=== PATIENT | female | born 1990 | race Caucasian/White ===

== ENCOUNTER 2017-12-12 12:52 | Emergency (ER) | payer BC, OTHER ==
[~2017-12-12] VITALS: Ht 167.6 cm; Wt 83.9 kg
--- OUTSIDE RECORDS SUMMARY | 2017-12-12 12:57 | XMS REPORT ---
Author Author LOUIE JOHNSON Organization [facility] Address [address] [place] [address] Care Team Providers Care Fishing Manager Name Role Phone LOUIE JOHNSON Unavailable PROBLEMS Type Condition ICD9-CM Code NNM84-SY Code Onset Dates Condition Status SNOMED Code Problem Cervical high risk human papillomavirus (HPV) DNA test positive R87.810 Active [id number] ALLERGIES No Information ENCOUNTERS Encounter Location Date Diagnosis [facility] [id number] [place] [address] Nov, Encounter for Depo-Provera contraception Z30.42 [facility] [id number] [place] [address]48 [address][phone] August, Encounter for Depo-Provera contraception Z30.42 [facility] [id number] [place] [address] 63358- 3062 Jun, Cervical high risk human papillomavirus (HPV) DNA test positive R87.810 [facility] [id number] [place] [address] 09854- 7530 Jun, [facility] [id number] [place] [address] 30305- 3703 May, Encounter for Depo-Provera contraception Z30.42 ; Well woman exam Z01.419 and Encounter for surveillance of injectable contraceptive Z30.42 [facility] [id number] [place] [address] [phone]- [phone] May, [facility] [id number] [place] [address]3457 -1848 Feb, Encounter for Depo-Provera contraception Z30.42 [facility] [address], [place] [address] Nov, Encounter for Depo-Provera contraception Z30.42 [facility] [address], [place] [address] August, Abnormal thyroid function test R94.6 [facility] [address] [place] [address] 58785- 7208 August, Abnormal thyroid function test R94.6 ; Anterior chest wall pain R07.89 and General medical exam Z00.00 [facility] [id number] [place] [address]3700- 5726 August, Encounter for Depo-Provera contraception Z30.42 [facility] [id number] [place] [address] 79160- 9528 Jun, [facility] [id number] [place] [address] 06396- 6444 Jun, Cervical high risk human papillomavirus (HPV) DNA test positive R87.810 and Atypical squamous cells of undetermined significance on cytologic smear of cervix (ASC-US) R87.610 [facility] [id number] [place] [address] 56786- 9315 07 May, 2016 Routine gynecological examination Z01.419 and Encounter for Depo-Provera contraception Z30.42 [facility] [address], [place] [address] Jul, [facility] [id number] [place] [address] 98355- 6212 Jul, [facility] [id number] [place] [address] 18253- 8156 Oct, [facility] [id number] [place] [address] [phone]- [phone] Jun, [facility] [address] [address] Jun, [facility] [id number] [place] [address] Jun, [facility] [address] [facility] [id number] [place] [address] Jan, [facility] [address] [facility] [id number] [place] [address] Jan, IMMUNIZATIONS Vaccine Route Administration Date Status DEPO PROVERA (150 MG/ML) IM Intramuscular August 26, 2017 Administered SOCIAL HISTORY Never Assessed REASON FOR VISIT Depo Provera injection PLAN OF CARE VITAL SIGNS Height 65 in 2017-08-26 Weight 189.6 lbs 2017-08-26 BMI 31.55 kg/m2 2017-08-26 MEDICATIONS Unknown Medications RESULTS Name Result Date Reference Range TEST, URINE (IN HOUSE) 2017-08-26 RESULTS negative Lot # [id number] Control + Exp date 01/03/2019 PROCEDURES Procedure Date Ordered Result Body Site URINE TEST August 26, 2017 DEPO PROVERA (150 MG/ML) August 26, 2017 THER/PROPH/DIAG INJ, SC/IM August 26, 2017 INSTRUCTIONS MEDICATIONS ADMINISTERED No Known Medications MEDICAL (GENERAL) HISTORY Type Description Date Medical History gestational diabetes
--- OUTSIDE RECORDS SUMMARY | 2017-12-12 12:57 | XMS REPORT ---
Author Author XIOMARA KATE Organization [facility] Address [address] [place] [address] Care Team Providers Care Resist Coater Developer Name Role Phone LADD XIOMARA ROBERTS Unavailable PROBLEMS Type Condition ICD9-CM Code UWE84-FZ Code Onset Dates Condition Status SNOMED Code Problem Cervical high risk human papillomavirus (HPV) DNA test positive R87.810 Active [id number] ALLERGIES No Known Allergies ENCOUNTERS Encounter Location Date Diagnosis [facility] [id number] [place] [address] 14582 [address] August, Encounter for Depo-Provera contraception Z30.42 [facility] [id number] [place] [address] 48736- 2935 Jun, Cervical high risk human papillomavirus (HPV) DNA test positive R87.810 [facility] [id number] [place] [address] 67508- 9313 Jun, [facility] [address] [place] [address] 89854- 0607 May, Well woman exam Z01.419 ; Encounter for Depo-Provera contraception Z30.42 and Encounter for surveillance of injectable contraceptive Z30.42 [facility] [address] [place] [address] 60869- 2759 May, [facility] [id number] [place] [address] 98059 -2324 Feb, Encounter for Depo-Provera contraception Z30.42 [facility] [id number] [place] [address] 66204 -3112 Nov, Encounter for Depo-Provera contraception Z30.42 [facility] [id number] [place] [address] 57368- 4981 August, Abnormal thyroid function test R94.6 [facility] [id number] [place] [address] 34441- 5372 August, Abnormal thyroid function test R94.6 ; Anterior chest wall pain R07.89 and General medical exam Z00.00 [facility] [id number] [place] [address] 62894- 0467 August, Encounter for Depo-Provera contraception Z30.42 [facility] [facility] [id number] [place] [address] 74745- 0258 Jun, [facility] [id number] [place] [address] 82527- 3357 Jun, Cervical high risk human papillomavirus (HPV) DNA test positive R87.810 and Atypical squamous cells of undetermined significance on cytologic smear of cervix (ASC-US) R87.610 [facility] [id number] [place] [address] 61044- 5359 May, Routine gynecological examination Z01.419 and Encounter for Depo-Provera contraception Z30.42 [facility] [id number] [place] [address] 50677- 1047 Jul, [facility] [id number] [place] [address] 33818- [phone] Jul, [facility] [id number] [place] [address] 86319- 6447 Oct, [facility] [id number] [place] [address] 37464- 1718 Jun, [facility] [id number] [place] [address] 80214- 0648 Jun, [facility] [id number] [place] [address] 58597- 2603 Jun, [place] [facility] [id number] [place] [address] 46328- 9606 Jan, [facility] [address] [facility] [id number] [place] [address] Jan, IMMUNIZATIONS Vaccine Route Administration Date Status DEPO PROVERA (150 MG/ML) IM Intramuscular May 22, 2017 Administered SOCIAL HISTORY Never Assessed REASON FOR VISIT control/yearly annual exam, Needing repeat pap. Needing depo shot renewed. -MIKE Chaves PLAN OF CARE Activity Details Follow Up 1 Year Reason: VITAL SIGNS Height 65 in 2017-05-22 Weight 187 lbs 2017-05-22 Heart Rate 80 bpm 2017-05-22 Respiratory Rate 18 2017-05-22 BMI 31.12 kg/m2 2017-05-22 Blood pressure systolic 100 mmHg 2017-05-22 Blood pressure diastolic 70 mmHg 2017-05-22 MEDICATIONS Medication Instructions Dosage Frequency Start Date End Date Duration Status Ranitidine HCl 150 mg 1 tablet by Oral route 2 times per day Jun, Not-Taking Depo-Provera 150 MG/ML as directed May, Active RESULTS No Results PROCEDURES Procedure Date Ordered Result Body Site TRICHOMONAS ASSAY W/OPTIC May 22, 2017 Bacterial Vaginosis In House May 22, 2017 DEPO PROVERA (150 MG/ML) May 22, 2017 THER/PROPH/DIAG INJ, SC/IM May 22, 2017 SPECIMEN HANDLING May 22, 2017 URINE TEST May 22, 2017 No Charge May 22, 2017 CULTURE, BACTERIA, OTHER May 22, 2017 INSTRUCTIONS MEDICATIONS ADMINISTERED No Known Medications MEDICAL (GENERAL) HISTORY Type Description Date Medical History gestational diabetes
--- OUTSIDE RECORDS SUMMARY | 2017-12-12 12:58 | XMS REPORT ---
Author Author FRANCO BEASLEY Organization [facility] Address [address] [place] [address] Care Team Providers Care Dispatch Supervisor Name Role Phone DELMY BEASLEYHANY Unavailable PROBLEMS Type Condition ICD9-CM Code RYP66-VX Code Onset Dates Condition Status SNOMED Code Problem Cervical high risk human papillomavirus (HPV) DNA test positive R87.810 Active [id number] ALLERGIES No Known Allergies SOCIAL HISTORY Never Assessed PLAN OF CARE Activity Details Follow Up prn Reason: VITAL SIGNS Height 65 in 2016-06-06 Weight 187.8 lbs 2016-06-06 Temperature 98.4 degrees Fahrenheit 2016-06-06 Heart Rate 76 bpm 2016-06-06 Respiratory Rate 20 2016-06-06 BMI 31.25 kg/m2 2016-06-06 Blood pressure systolic 110 mmHg 2016-06-06 Blood pressure diastolic 78 mmHg 2016-06-06 MEDICATIONS Medication Instructions Dosage Frequency Start Date End Date Duration Status Depo-Provera 150 MG/ML as directed May, Active RESULTS Name Result Date Reference Range PATHOLOGY REPORT 2016-06-06 . . . . . . . TEST, URINE (IN HOUSE) 2016-06-06 RESULTS Negative Lot # [id number] Control + Exp date 07/2017 PDF Report 2016-06-06 PDF Report1 LC PROCEDURES Procedure Date Ordered Result Body Site COLP W/ BX & ECC 2016-06-06 N/A URINE TEST June 06, 2016 BX/CURETT OF CERVIX W/SCOPE June 06, 2016 IMMUNIZATIONS No Known Immunizations MEDICAL (GENERAL) HISTORY Type Description Date Medical History gestational diabetes
--- OUTSIDE RECORDS SUMMARY | 2017-12-12 12:58 | XMS REPORT ---
Author Author DEANGELO HUDSON Organization [facility] Address [address] [place] [address] Care Team Providers Care Risk Manager Name Role Phone DEANGELO HUDSON Unavailable PROBLEMS Type Condition ICD9-CM Code WYL65-PG Code Onset Dates Condition Status SNOMED Code Problem Cervical high risk human papillomavirus (HPV) DNA test positive R87.810 Active [id number] ALLERGIES No Known Allergies SOCIAL HISTORY Never Assessed PLAN OF CARE Activity Details Follow Up 1 Year, sooner prn Reason: VITAL SIGNS Height 65 in 2016-05-13 Weight 184 lbs 2016-05-13 Temperature 98.1 degrees Fahrenheit 2016-05-13 Heart Rate 90 bpm 2016-05-13 Respiratory Rate 20 2016-05-13 BMI 30.62 kg/m2 2016-05-13 Blood pressure systolic 102 mmHg 2016-05-13 Blood pressure diastolic 74 mmHg 2016-05-13 MEDICATIONS Medication Instructions Dosage Frequency Start Date End Date Duration Status Depo-Provera 150 MG/ML as directed May, Active RESULTS Name Result Date Reference Range TEST, URINE (IN HOUSE) 2016-05-13 RESULTS negative Lot # [id number] Control + Exp date 07/22 TRICHOMONAS (IN HOUSE) 2016-05-13 TRICHOMONAS negative Control + Lot # [id number] Exp date 02/20 BACTERIAL VAGINOSIS (IN HOUSE) 2016-05-13 RESULTS negative Control + Lot # [id number] Exp date 11/20 CULTURE, GENITAL 2016-05-13 Genital Culture, Routine Final report Result 1 PDF Report 2016-05-13 PDF Report1 LCLS PAP TEST, HPV IF ASCUS 2016-05-13 DIAGNOSIS: Recommendation: Specimen adequacy: Clinician provided ICD10: Performed by: Electronically signed by: . . Pathologist provided ICD10: Note: . HPV, high-risk Positive Negative PAP TEST, HPV IF ASCUS 2016-05-13 DIAGNOSIS: Recommendation: Specimen adequacy: Clinician provided ICD10: Performed by: Electronically signed by: . . Pathologist provided ICD10: Note: . HPV, high-risk Positive Negative GC/CHLAM PROBE (STATE) 2016-05-13 CHLAMYDIA GC PROCEDURES Procedure Date Ordered Result Body Site SPECIMEN HANDLING May 13, 2016 LIMA VAG, DNA, DIR PROBE May 13, 2016 THER/PROPH/DIAG INJ, SC/IM May 13, 2016 DEPO PROVERA (150 MG/ML) May 13, 2016 No Charge May 13, 2016 TRICHOMONAS ASSAY W/OPTIC May 13, 2016 URINE TEST May 13, 2016 CULTURE, BACTERIA, OTHER May 13, 2016 IMMUNIZATIONS Vaccine Route Administration Date Status DEPO PROVERA (150 MG/ML) IM Intramuscular May 13, 2016 Administered MEDICAL (GENERAL) HISTORY Type Description Date Medical History gestational diabetes
--- OUTSIDE RECORDS SUMMARY | 2017-12-12 12:58 | XMS REPORT | Continuity of Care Document ---
Author Author [facility] Address Unknown Phone Unavailable Allergies There is no data. Medications There is no data. Problems Date Dx Coded Attending Type Code Diagnosis Diagnosed By 01/07/2012 BERNIE KAHN APRN 465.9 UPPER RESPIRATORY INFECTION 01/07/2012 BERNIE KAHN APRN V25.02 CONTRACEPTION - ANY METHOD 01/07/2012 BERNIE KHAN APRN V72.31 SEED CUTTER EXAM, ROUTINE 01/07/2012 BERNIE KAHN APRN V74.5 STD SCREEN 07/01/2012 BERNIE KAHN APRN 535.50 GASTRITIS UNSPEC Procedures Code Description [place] [address] URINE TEST (IN- HOUSE) 07/01/2012 Results Test Result Range Genital Culture, Routine - 05/13/16 12:38 Genital Culture, Routine Note Pap Lb, rfx HPV ASCU - 05/13/16 12:38 DIAGNOSIS: Comment Recommendation: Comment Specimen adequacy: Comment Clinician provided ICD10: Comment Performed by: Comment Electronically signed by: Comment . . Pathologist provided ICD10: Comment Note: Comment . Comment HPV, high-risk - 05/13/16 12:38 HPV, high-risk Positive Negative Pathology Report - 06/06/16 14:26 . Comment . Comment . Comment . Comment . Comment . Comment . Comment CBC With Differential/Platelet - 08/21/16 17:43 WBC 12.4 x10E3/uL 3.4-10.8 RBC 4.94 x10E6/uL 3.77-5.28 Hemoglobin 14.6 g/dL 11.1-15.9 Hematocrit 43.3 % 34.0-46.6 MCV 88 fL 79-97 MCH 29.6 pg 26.6-33.0 MCHC 33.7 g/dL 31.5-35.7 RDW 12.9 % 12.3-15.4 Platelets 326 x10E3/uL 150-379 Neutrophils 64 % Lymphs 29 % Monocytes 5 % Eos 2 % Basos 0 % Neutrophils (Absolute) 8.0 x10E3/uL 1.4-7.0 Lymphs (Absolute) 3.6 x10E3/uL 0.7-3.1 Monocytes(Absolute) 0.6 x10E3/uL 0.1-0.9 Eos (Absolute) 0.2 x10E3/uL 0.0-0.4 Baso (Absolute) 0.0 x10E3/uL 0.0-0.2 Immature Granulocytes 0 % Immature Grans (Abs) 0.0 x10E3/uL 0.0-0.1 Comp. Metabolic Panel (14) - 08/21/16 17:43 Glucose, Serum 81 mg/dL 65-99 BUN 12 mg/dL 6-20 Creatinine, Serum 0.78 mg/dL 0.57-1.00 eGFR If NonAfricn Am 105 mL/min/1.73 >59 eGFR If Africn Am 121 mL/min/1.73 >59 BUN/Creatinine Ratio 15 9-23 Sodium, Serum 141 mmol/L 134-144 Potassium, Serum 4.5 mmol/L 3.5-5.2 Chloride, Serum 101 mmol/L 96-106 Carbon Dioxide, Total 22 mmol/L 18-29 Calcium, Serum 10.2 mg/dL 8.7-10.2 Protein, Total, Serum 7.0 g/dL 6.0-8.5 Albumin, Serum 4.5 g/dL 3.5-5.5 Globulin, Total 2.5 g/dL 1.5-4.5 A/G Ratio 1.8 1.2-2.2 Bilirubin, Total 0.3 mg/dL 0.0-1.2 Alkaline Phosphatase, S 101 IU/L 39-117 AST (SGOT) 15 IU/L 0-40 ALT (SGPT) 14 IU/L 0-32 TSH - 08/21/16 17:43 TSH 0.401 uIU/mL 0.450-4.500 CULTURE, GENITAL - 05/22/17 14:31 CULTURE, GENITAL SEE NOTE NRG SUREPATH PAP AND HPV mRNA E6/E7 - 05/22/17 14:31 CLINICAL INFORMATION: NRG LMP: NRG PREV. PAP: 2017 NRG PREV. BX: COLP 2017 NRG SOURCE: Cervix NRG STATEMENT OF ADEQUACY: NRG INTERPRETATION/RESULT: NRG IT DISASTER RECOVERY MANAGER: NRG HPV mRNA E6/E7, SUREPATH VIAL Detected NOT DETECTED REVIEW IT DISASTER RECOVERY MANAGER: LISETTE TISSUE, 2 SPECIMENS - 06/15/17 13:58 A SOURCE NRG A GROSS DESCRIPTION NRG A DIAGNOSIS NRG Encounters ACCT No. Visit Date/Time Discharge Status Pt. Type Provider Facility Loc./Unit Complaint [id number] 07/01/2012 12:56:00 07/01/2012 23:59:59 CLS Outpatient BERNIE KAHN APRN [id number] 06/10/2016 18:09:00 Document Registration [id number] 08/26/2017 17:35:00 08/26/2017 23:59:59 CLS Outpatient LOUIE JOHNSON APRN [facility] [id number] 06/15/2017 13:00:00 Document Registration [id number] 05/22/2017 13:40:00 Document Registration [id number] 05/16/2016 14:08:00 Document Registration [id number] 05/21/2016 20:07:00 Document Registration [id number] 08/22/2016 08:07:00 Document Registration
--- OUTSIDE RECORDS SUMMARY | 2017-12-12 12:58 | XMS REPORT ---
Author Author FRANCO BEASLEY [facility] Address [address] [place] [address] Care Team Providers Care Chief Contract Officer Name Role Phone FRANCO BEASLEY Unavailable PROBLEMS Type Condition ICD9-CM Code BGF13-LG Code Onset Dates Condition Status SNOMED Code Problem Cervical high risk human papillomavirus (HPV) DNA test positive R87.810 Active [id number] ALLERGIES No Information SOCIAL HISTORY Never Assessed PLAN OF CARE VITAL SIGNS MEDICATIONS No Known Medications RESULTS No Results PROCEDURES No Known procedures IMMUNIZATIONS No Known Immunizations MEDICAL (GENERAL) HISTORY Type Description Date Medical History gestational diabetes
--- OUTSIDE RECORDS SUMMARY | 2017-12-12 12:58 | XMS REPORT ---
Author Author LOUIE JOHNSON [facility] Address [address] [place] [address] Care Team Providers Care Audit Clerks Supervisor Name Role Phone LOUIE JOHNSON Unavailable PROBLEMS Type Condition ICD9-CM Code VFD74-XH Code Onset Dates Condition Status SNOMED Code Problem Cervical high risk human papillomavirus (HPV) DNA test positive R87.810 Active [id number] ALLERGIES No Information SOCIAL HISTORY Never Assessed PLAN OF CARE VITAL SIGNS MEDICATIONS No Known Medications RESULTS No Results PROCEDURES No Known procedures IMMUNIZATIONS No Known Immunizations MEDICAL (GENERAL) HISTORY Type Description Date Medical History gestational diabetes
--- OUTSIDE RECORDS SUMMARY | 2017-12-12 12:58 | XMS REPORT ---
Author Author LOUIE JOHNSON [facility] Address [address] [place] [address] Care Team Providers Care Laborer Prestressed Concrete Name Role Phone LOUIE JOHNSON Unavailable PROBLEMS Type Condition ICD9-CM Code QGL95-NO Code Onset Dates Condition Status SNOMED Code Problem Cervical high risk human papillomavirus (HPV) DNA test positive R87.810 Active [id number] ALLERGIES No Known Allergies SOCIAL HISTORY Never Assessed PLAN OF CARE Activity Details Follow Up pending xray and lab Reason: VITAL SIGNS Height 65 in 2016-08-21 Weight 189 lbs 2016-08-21 Temperature 98.5 degrees Fahrenheit 2016-08-21 Heart Rate 90 bpm 2016-08-21 Respiratory Rate 20 2016-08-21 BMI 31.45 kg/m2 2016-08-21 Blood pressure systolic 118 mmHg 2016-08-21 Blood pressure diastolic 74 mmHg 2016-08-21 MEDICATIONS Medication Instructions Dosage Frequency Start Date End Date Duration Status Depo-Provera 150 MG/ML as directed May, Active RESULTS Name Result Date Reference Range CBC 2016-08-21 WBC 12.4 3.4-10.8 RBC 4.94 3.77-5.28 Hemoglobin 14.6 11.1-15.9 Hematocrit 43.3 34.0-46.6 MCV 88 79-97 MCH 29.6 26.6-33.0 MCHC 33.7 31.5-35.7 RDW 12.9 12.3-15.4 Platelets 326 150-379 Neutrophils 64 Lymphs 29 Monocytes 5 Eos 2 Basos 0 Neutrophils (Absolute) 8.0 1.4-7.0 Lymphs (Absolute) 3.6 0.7-3.1 Monocytes(Absolute) 0.6 0.1-0.9 Eos (Absolute) 0.2 0.0-0.4 Baso (Absolute) 0.0 0.0-0.2 Immature Granulocytes 0 Immature Grans (Abs) 0.0 0.0-0.1 CMP 2016-08-21 Glucose, Serum 81 65-99 BUN 12 6-20 Creatinine, Serum 0.78 0.57-1.00 eGFR If NonAfricn Am 105 >59 eGFR If Africn Am 121 >59 BUN/Creatinine Ratio 15 9-23 Sodium, Serum 141 134-144 Potassium, Serum 4.5 3.5-5.2 Chloride, Serum 101 96-106 Carbon Dioxide, Total 22 18-29 Calcium, Serum 10.2 8.7-10.2 Protein, Total, Serum 7.0 6.0-8.5 Albumin, Serum 4.5 3.5-5.5 Globulin, Total 2.5 1.5-4.5 A/G Ratio 1.8 1.2-2.2 Bilirubin, Total 0.3 0.0-1.2 Alkaline Phosphatase, S 101 39-117 AST (SGOT) 15 0-40 ALT (SGPT) 14 0-32 PROCEDURES Procedure Date Ordered Result Body Site ASSAY THYROID STIM HORMONE August 21, 2016 COMPLETE CBC W/AUTO DIFF WBC August 21, 2016 CHEST X-RAY August 21, 2016 COMPREHEN METABOLIC PANEL August 21, 2016 VENIPUNCT, ROUTINE* August 21, 2016 IMMUNIZATIONS No Known Immunizations MEDICAL (GENERAL) HISTORY Type Description Date Medical History gestational diabetes
--- OUTSIDE RECORDS SUMMARY | 2017-12-12 12:58 | XMS REPORT ---
Author Author RAMOS FRANCO [facility] Address [address] [place] [address] Care Team Providers Care Foreign Policy Officer Name Role Phone FRANCO BEASLEY Unavailable PROBLEMS Type Condition ICD9-CM Code BYZ43-DV Code Onset Dates Condition Status SNOMED Code Problem Cervical high risk human papillomavirus (HPV) DNA test positive R87.810 Active 216807019 ALLERGIES No Known Allergies ENCOUNTERS Encounter Location Date Diagnosis [facility] WALK IN [facility] [id number] [place] [phone] August, Encounter for Depo-Provera contraception Z30.42 [facility], [place] [address] [place] [phone]- [phone] Jun, Cervical high risk human papillomavirus (HPV) DNA test positive R87.810 [facility], [place] [address] [id number] [place] [address] 050[phone] Jun, [facility] [place] [address] [place] [address] 23071[address] 9331 May, Well woman exam Z01.419 ; Encounter for Depo-Provera contraception Z30.42 and Encounter for surveillance of injectable contraceptive Z30.42 [facility] [place] [address] [place] [address] 06210- [address]187 May, [facility] [id number] [place] [phone] Feb, Encounter for Depo-Provera contraception Z30.42 [facility] WALK IN [facility] [address] [place] [phone] Nov, Encounter for Depo-Provera contraception Z30.42 [facility], [place] [id number] [place] [address] 42455- 7891 August, Abnormal thyroid function test R94.6 [place] [id number] [place] [address] 35628- 3[address] August, Abnormal thyroid function test R94.6 ; Anterior chest wall pain R07.89 and General medical exam Z00.00 [place] [address] [address] August, Encounter for Depo-Provera contraception Z30.42 [place] [id number] [place] [address] [phone]- 2660 Jun, [place] [id number] [place] [address] 10954- 6220 Jun, Cervical high risk human papillomavirus (HPV) DNA test positive R87.810 and Atypical squamous cells of undetermined significance on cytologic smear of cervix (ASC-US) R87.610 [place] [id number] [place] [address] 24775- 6007 May, Routine gynecological examination Z01.419 and Encounter for Depo-Provera contraception Z30.42 [place] [id number] [place] [phone]- [address]3 Jul, [place] [id number] [place] [address] 56[address]- 1614 Jul, [place] [id number] [place] [phone]- [phone] Oct, [place] [id number] [place] [address] [phone]- [phone] Jun, [place] [id number] [place] [address] [phone]- [phone] Jun, [place] [id number] [place] [address] [phone]- [phone] Jun, [place] [address] [address] Jan, [facility], [place] [address] [facility] [id number] [place] [address] Jan, IMMUNIZATIONS No Known Immunizations SOCIAL HISTORY Never Assessed REASON FOR VISIT HPV positive -- ladi navarro, consent signed PLAN OF CARE Activity Details Follow Up prn Reason: VITAL SIGNS MEDICATIONS Medication Instructions Dosage Frequency Start Date End Date Duration Status Depo-Provera 150 MG/ML as directed May, Active Ranitidine HCl 150 mg 1 tablet by Oral route 2 times per day Jun, Not-Taking RESULTS Name Result Date Reference Range TEST, URINE (IN HOUSE) 2017-06-15 RESULTS negative Lot # [id number] Control + Exp date 11/03/18 PATHOLOGY REPORT (TISSUE PATHOLOGY) 2017-06-15 CLINICAL INFORMATION PATHOLOGIST TISSUE, 2 SPECIMENS 2017-06-15 A SOURCE A GROSS DESCRIPTION A DIAGNOSIS PROCEDURES Procedure Date Ordered Result Body Site URINE TEST June 15, 2017 BX/CURETT OF CERVIX W/SCOPE June 15, 2017 INSTRUCTIONS MEDICATIONS ADMINISTERED No Known Medications MEDICAL (GENERAL) HISTORY Type Description Date Medical History gestational diabetes
[2017-12-12] MEDS ORDERED: ONDANSETRON 4 MG/2 ML (SDV) Z0FRAN IVP ONE (14:30)
[2017-12-12] MEDS ORDERED: NS IV 1000 ML 1,000 ML IV SCH (14:30)
[2017-12-12 14:44] LABS: BASOPHILS % (AUTO) 0 % (0-10); EOSINOPHILS # (AUTO) 0.2 10^3/uL (0.0-0.3); EOSINOPHILS % (AUTO) 1 % (0-10); HEMATOCRIT 42 % (35-52); HEMOGLOBIN 14.8 G/DL (11.5-16.0); LYMPHOCYTES # (AUTO) 1.8 X 10^3 (1.0-4.0); LYMPHOCYTES % (AUTO) 16 % (12-44); MEAN CORPUSCULAR HEMOGLOBIN 30 PG (25-34); MEAN CORPUSCULAR HGB CONC 36 G/DL (32-36); MEAN CORPUSCULAR VOLUME 84 FL (80-99); MEAN PLATELET VOLUME 9.5 FL (7.4-10.4); MONOCYTES # (AUTO) 0.8 X 10^3 (0.0-1.0); MONOCYTES % (AUTO) 8 % (0-12); NEUTROPHILS # (AUTO) 8.3 X 10^3 (1.8-7.8); NEUTROPHILS % (AUTO) 75 % (42-75); PLATELET COUNT 334 10^3/uL (130-400); RED BLOOD COUNT 4.96 10^6/uL (4.35-5.85); RED CELL DISTRIBUTION WIDTH 12.6 % (10.0-14.5); WHITE BLOOD COUNT 11.1 10^3/uL (4.3-11.0)
[2017-12-12 15:04] LABS: ALANINE AMINOTRANSFERASE 24 U/L (0-55); ALBUMIN 4.5 GM/DL (3.2-4.5); ALKALINE PHOSPHATASE 105 U/L (40-136); AMYLASE 43 U/L (25-125); BILIRUBIN,TOTAL 0.6 MG/DL (0.1-1.0); BUN/CREATININE RATIO 10; CALCIUM 9.6 MG/DL (8.5-10.1); CARBON DIOXIDE 20 MMOL/L (21-32); CHLORIDE 109 MMOL/L (98-107); CREATININE SERUM 0.78 MG/DL (0.60-1.30); GFR ESTIMATED > 60; GLUCOSE 82 MG/DL (70-105); LIPASE 19 U/L (8-78); POTASSIUM 3.6 MMOL/L (3.6-5.0); SODIUM 140 MMOL/L (135-145); TOTAL PROTEIN 7.4 GM/DL (6.4-8.2)
[2017-12-12 15:11] LABS: BILIRUBIN,URINE NEGATIVE (NEGATIVE); CLARITY,URINE CLEAR; COLOR,URINE YELLOW; GLUCOSE, URINE (UA) NEGATIVE (NEGATIVE); KETONES,URINE 2+ (NEGATIVE); LEUKOCYTE ESTERASE ,URINE 2+ (NEGATIVE); NITRITE,URINE NEGATIVE (NEGATIVE); PH,URINE 7 (5-9); PROTEIN,URINE NEGATIVE (NEGATIVE); UROBILINOGEN,URINE NORMAL (NORMAL)
--- NOTE | 2017-12-12 15:19 | ED GI ---
General Chief Complaint: Abdominal/GI Problems Stated Complaint: CANT EAT,NAUSEA,HEART RATE KEEPS GOING UP Nursing Triage Note: ARRIVED VIA AMB TO ROOM 05 WITH COMPLAINTS OF NAUSEA/ABD PAIN X4 DAYS. SEEN DR YESTERDAY ET PUT ON OMEPRAZOLE AND HAS A OUTPT GALLBLADDER US SCHEDULED. Sepsis Screen: No Definite Risk Source of Information: Patient Exam Limitations: No Limitations History of Present Illness Date Seen by Provider: Dec 12, 2017 Time Seen by Provider: 14:30 Initial Comments Patient is a 27-year-old female who presents to the emergency room with complaints of nausea, upper abdominal pain for the past 4 days. She reports that she was seen yesterday by her doctor and put on omeprazole but has not had any relief of symptoms and they scheduled her a gallbladder ultrasound for . Timing/Duration: 4-5 Days Severity/Quality: Mild Location: Epigastric Allergies and Home Medications Allergies Coded Allergies: No Known Drug Allergies (Unverified , 12/12/17) Home Medications Hydroxyzine Pamoate 25 Mg Capsule, 25 MG PO Q6H Prescribed by: JOAQUINA GONGORA on 12/13/17 0745 Ondansetron 4 Mg Tab.rapdis, 4 MG SL Q4H PRN for NAUSEA/VOMITING-1ST LINE Prescribed by: GERARDO LEE on 12/12/17 1542 Patient Home Medication List Home Medication List Reviewed: Yes Review of Systems Review of Systems Constitutional: see HPI; No chills, No fever Gastrointestinal: See HPI, Abdominal Pain, Nausea, Other (reflux) All Other Systems Reviewed Negative Unless Noted: Yes Past Rweijhq-Xypeto-Lexwlx Hx Past Med/Social Hx: Reviewed Nursing Past Med/Soc Hx Patient Social History Alcohol Use: Rarely Uses Recreational Drug Use: No Smoking Status: Never a Smoker Recent Foreign Travel: No Contact w/Someone Who Travel: No Recent Infectious Disease Expo: No Recent Hopitalizations: No Seasonal Allergies Seasonal Allergies: No Past Medical History Surgeries: No Respiratory: No Cardiac: No Neurological: No : No 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 oz. 83.170552bz; BMI Method:Stated General Appearance: WD/WN, no apparent distress HEENT: PERRL/EOMI, normal ENT inspection, TMs normal, pharynx normal Respiratory: chest non-tender, lungs clear, normal breath sounds, no respiratory distress, no accessory muscle use Cardiovascular: normal peripheral pulses, regular rate, rhythm, no edema, no gallop, no JVD, no murmur Gastrointestinal: normal bowel sounds, non tender, soft, no organomegaly, no pulsatile mass Neurologic/Psychiatric: alert, normal mood/affect, oriented x 3 Skin: normal color, warm/dry Progress/Results/Core Measures Results/Orders Lab Results Laboratory Tests Test 12/12/17 13:34 12/12/17 15:00 Range/Units White Blood Count 11.1 H 4.3-11.0 10^3/uL Red Blood Count 4.96 4.35-5.85 10^6/uL Hemoglobin 14.8 11.5-16.0 G/DL Hematocrit 42 35-52 % Mean Corpuscular Volume 84 80-99 FL Mean Corpuscular Hemoglobin 30 25-34 PG Mean Corpuscular Hemoglobin Concent 36 32-36 G/DL Red Cell Distribution Width 12.6 10.0-14.5 % Platelet Count 334 130-400 10^3/uL Mean Platelet Volume 9.5 7.4-10.4 FL Neutrophils (%) (Auto) 75 42-75 % Lymphocytes (%) (Auto) 16 12-44 % Monocytes (%) (Auto) 8 0-12 % Eosinophils (%) (Auto) 1 0-10 % Basophils (%) (Auto) 0 0-10 % Neutrophils # (Auto) 8.3 H 1.8-7.8 X 10^3 Lymphocytes # (Auto) 1.8 1.0-4.0 X 10^3 Monocytes # (Auto) 0.8 0.0-1.0 X 10^3 Eosinophils # (Auto) 0.2 0.0-0.3 10^3/uL Basophils # (Auto) 0.0 0.0-0.1 10^3/uL Sodium Level 140 135-145 MMOL/L Potassium Level 3.6 3.6-5.0 MMOL/L Chloride Level 109 H 98-107 MMOL/L Carbon Dioxide Level 20 L 21-32 MMOL/L Anion Gap 11 5-14 MMOL/L Blood Urea Nitrogen 8 7-18 MG/DL Creatinine 0.78 0.60-1.30 MG/DL Estimat Glomerular Filtration Rate > 60 BUN/Creatinine Ratio 10 Glucose Level 82 70-105 MG/DL Calcium Level 9.6 8.5-10.1 MG/DL Corrected Calcium 9.2 8.5-10.1 MG/DL Total Bilirubin 0.6 0.1-1.0 MG/DL Aspartate Amino Transf (AST/SGOT) 20 5-34 U/L Alanine Aminotransferase (ALT/SGPT) 24 0-55 U/L Alkaline Phosphatase 105 40-136 U/L Total Protein 7.4 6.4-8.2 GM/DL Albumin 4.5 3.2-4.5 GM/DL Amylase Level 43 25-125 U/L Lipase 19 8-78 U/L Serum Test, Qualitative NEGATIVE NEGATIVE Urine Color YELLOW Urine Clarity CLEAR Urine pH 7 5-9 Urine Specific Sproul 1.005 L 1.016-1.022 Urine Protein NEGATIVE NEGATIVE Urine Glucose (UA) NEGATIVE NEGATIVE Urine Ketones 2+ H NEGATIVE Urine Nitrite NEGATIVE NEGATIVE Urine Bilirubin NEGATIVE NEGATIVE Urine Urobilinogen NORMAL NORMAL MG/DL Urine Leukocyte Esterase 2+ H NEGATIVE Urine RBC (Auto) 3+ H NEGATIVE Urine RBC 0-2 /HPF Urine WBC 5-10 H /HPF Urine Squamous Epithelial Cells 5-10 /HPF Urine Crystals NONE /LPF Urine Bacteria LARGE H /HPF Urine Casts NONE /LPF Urine Mucus NEGATIVE /LPF Urine Culture Indicated YES My Orders Orders - GERARDO LEE Comprehensive Metabolic Panel (12/12/17 14:18) Lipase (12/12/17 14:18) Amylase (12/12/17 14:18) Ua Culture If Indicated (12/12/17 14:18) Hcg,Qualitative Serum (12/12/17 14:18) Saline Lock/Iv-Start (12/12/17 14:18) Cbc With Automated Diff (12/12/17 14:18) Ns Iv 1000 Ml (Sodium Chloride 0.9%) (12/12/17 14:30) Ondansetron Injection (Zofran Injectio (12/12/17 14:30) Urine Culture (12/12/17 15:00) Medications Given in ED Vital Signs/I&O 12/12/17 12/12/17 14:18 15:52 Temp 98.0 Pulse 87 80 Resp 16 16 B/P (MAP) 125/82 (96) 121/80 Pulse Ox 96 98 O2 Delivery Room Air Room Air Blood Pressure Mean: 96 Progress Progress Note : Time: 15:40 Progress Note I seen and evaluated the patient. I informed her abnormal laboratory findings. She was instructed to keep her appointment with Jeannie Mock and her appointment for ultrasound of gallbladder. She agrees with plans of care, return precautions were given. Departure Impression Primary Impression: Nausea alone Additional Impression: Abdominal pain Disposition: HOME, SELF-CARE Condition: Stable/Unchanged Departure-Patient Inst. Decision time for Depature: 15:45 Referrals: JUVENTINO HENRY MD (PCP) Primary Care Physician Patient Instructions: Acute Abdomen (Belly Pain), Adult (DC), Nausea and Vomiting, Adult Add. Discharge Instructions: Take medications as directed. Continue your omeprazole as previously prescribed. Be sure to make your appointment for your ultrasound of her gallbladder. Drink plenty of clear liquids to stay hydrated. Follow-up with your primary care provider within 1 week for recheck. Return back to the emergency room for any worsening symptoms or concerns as needed. All discharge instructions reviewed with patient and/or family. Voiced understanding. Scripts Ondansetron (Zofran Odt) 4 Mg Tab.rapdis 4 MG SL Q4H PRN for NAUSEA/VOMITING-1ST LINE, #14 TAB Prov: GERARDO LEE 12/12/17 GERARDO LEE Dec 12, 2017 15:19
[2017-12-12 15:20] LABS: BACTERIA,URINE LARGE /HPF; RBC,URINE 0-2 /HPF
[2017-12-12] MEDS ORDERED: ONDA4TAB8 SL (15:42)
[2017-12-12 15:52] VITALS: BP 121/80
[2017-12-13] MEDS ORDERED: HYDR25CA PO (07:45)
== END 2017-12-12 15:52 | disposition home or self-care (01) ==
LOC: ER 12:54
DX: R11.0 Nausea (principal); R10.10 Upper abdominal pain, unspecified; Z97.5 Presence of (intrauterine) contraceptive device
CPT/HCPCS: 36415; 80053; 81000; 82150; 83690; 84703; 85025; 87088; 96361; 96374; 99282

== ENCOUNTER 2017-12-13 05:50 | Emergency (ER) | payer BC ==
[~2017-12-13] VITALS: Ht 167.6 cm; Wt 83.9 kg
[~2017-12-13 05:50] MED LIST: ONDA4TAB8 SL
--- OUTSIDE RECORDS SUMMARY | 2017-12-13 05:55 | XMS REPORT | Continuity of Care Document ---
Author Author Pending Sale To [facility] Address Unknown Phone Unavailable Allergies There is no data. Medications There is no data. Problems Date Dx Coded Attending Type Code Diagnosis Diagnosed By 01/07/2012 BERNIE KAHN APRN 465.9 UPPER RESPIRATORY INFECTION 01/07/2012 BERNIE KAHN APRN V25.02 CONTRACEPTION - ANY METHOD 01/07/2012 BERNIE KAHN APRN V72.31 CRATER AND PACKER EXAM, ROUTINE 01/07/2012 BERNIE KAHN APRN V74.5 STD SCREEN 07/01/2012 BERNIE KAHN APRN 535.50 GASTRITIS UNSPEC Procedures Code [place] [address] URINE TEST (IN- HOUSE) 07/01/2012 Results Test [...] NRG STATEMENT OF ADEQUACY: NRG INTERPRETATION/RESULT: NRG CARD CHECKER: NRG HPV mRNA E6/E7, SUREPATH VIAL Detected NOT DETECTED REVIEW CARD CHECKER: LISETTE TISSUE, 2 SPECIMENS - 06/15/17 13:58 A SOURCE NRG A GROSS DESCRIPTION NRG A DIAGNOSIS NRG Encounters ACCT No. Visit Date/Time Discharge Status Pt. Type Provider Facility Loc./Unit Complaint [id number] 07/01/2012 12:56:00 07/01/2012 23:59:59 CLS Outpatient BERNIE KAHN APRN [id number] 06/10/2016 18:09:00 Document Registration [id number] 08/26/2017 17:35:00 08/26/2017 23:59:59 CLS Outpatient LOUIE JOHNSON APRN [facility] [id number] 06/15/2017 13:00:00 Document Registration [id number] 05/22/2017 13:40:00 Document Registration [id number] 05/16/2016 14:08:00 Document Registration [id number] 05/21/2016 20:07:00 Document Registration [id number] 08/22/2016 08:07:00 Document Registration
--- NOTE | 2017-12-13 06:25 | ED Psychosocial ---
General Chief Complaint: Psych/Social Disorder Stated Complaint: SUICIDAL THOUGHTS,ANXIETY Source: patient, other Exam Limitations: no limitations History of Present Illness Date Seen by Provider: Dec 13, 2017 Time Seen by Provider: 06:00 Initial Comments Patient presents to the ER by private conveyance with her friend. Were she reports that about 2:30 this morning she woke up from sleep with morbid ideation and thoughts of wishing she was . She says she's also experienced a panic attack. She doesn't have a history of panic attacks. She states that she was recently having decreased interest in hobbies and feelings of low mood and so she was started on fluoxetine about 3 weeks ago. Thursday, 5 days ago she stopped the medicine because of having some symptoms of nausea and thought that maybe the medicine was causing it. She says she came to this ER yesterday for her nausea and was given some Zofran and that helped. She's never had any suicidal ideation or suicide attempts in the past. She does not have a plan today. She has never been inpatient psychiatric help. She does not have a psychiatrist. Her family doctor wrote her medication because she says recently she been having some loss of interest in playing with her son. She says she does not want to and does not want to kill herself because she has 2 things that she wants to get better for. She is very anxious about the way she feels and says she wants to get better so that she can be better for her son. Allergies and Home Medications Allergies Coded Allergies: No Known Drug Allergies (Unverified , 12/12/17) Home Medications Ondansetron 4 Mg Tab.rapdis, 4 MG SL Q4H PRN for NAUSEA/VOMITING-1ST LINE Prescribed by: GERARDO LEE on 12/12/17 1542 Patient Home Medication List Home Medication List Reviewed: Yes Review of Systems Constitutional: No chills, No diaphoresis EENTM: No ear discharge, No ear pain Respiratory: No cough, No short of breath Cardiovascular: No chest pain, No palpitations, No syncope Past Oxztasx-Gugykf-Wwjsod Hx Patient Social History Alcohol Use: Denies Use Recreational Drug Use: No Smoking Status: Never a Smoker Recent Foreign Travel: No Contact w/Someone Who Travel: No Recent Hopitalizations: No Seasonal Allergies Seasonal Allergies: No Past Medical History Surgeries: No Respiratory: No Cardiac: No Neurological: No 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 oz. 83.477140nd; BMI Method:Stated General Appearance: WD/WN, no apparent distress HEENT: PERRL/EOMI, pharynx normal Neck: full range of motion, normal inspection Respiratory: no respiratory distress, no accessory muscle use Cardiovascular: normal peripheral pulses, regular rate, rhythm Neurologic/Psychiatric: alert, oriented x 3, other (patient denies currently being suicidal or homicidal. She does endorse morbid ideation tonight.) Appearance/Memory: appropriate appearance, neat Behavior/Eye Contact: cooperative, good eye contact, normal speech Thoughts/Hallucinations: normal thought pattern, no apparent hallucination Progress/Results/Core Measures Results/Orders My Orders Orders - JOAQUINA GONGORA Hydroxyzine Oral (Vistaril Capsule) (12/13/17 06:30) Medications Given in ED Current Medications Medications Dose Ordered Sig/Sammy Route Start Time Stop Time Status Last Admin Dose Admin Hydroxyzine Pamoate 25 mg ONCE ONCE PO 12/13/17 06:30 12/13/17 06:31 DC 12/13/17 06:45 25 MG Vital Signs/I&O 12/13/17 06:00 Temp 96.8 Pulse 94 Resp 19 B/P (MAP) 143/85 (104) O2 Delivery Room Air Progress Progress Note : Time: 06:31 Progress Note Offer the patient some Vistaril and she has accepted this. We are going to observe her for a bit and see if the Vistaril helps. She does seem to have had a panic attack and is having some low mood problems for the past several weeks. In that she stopped using the fluoxetine 5 days ago should only been on it for 2 weeks so this seems a reasonable approach. I think it be also reasonable to set her up with outpatient resources and have offered this to her. Patient currently denies being suicidal. She has no previous history of suicidality. She has no other mental health issues. No other medications. She has come in with a friend and has a support group that can help her outpatient. We have discussed this with her and she is decisional and the risk for completing suicide seems to be incredibly low. She is looking for help so we are going to give her the local resources closest to her in [place] so that she can get plugged into the help. Departure Impression Primary Impression: Suicidal ideations Additional Impressions: Anxiety Depression Qualified Codes: F34.1 - Dysthymic disorder Disposition: HOME, SELF-CARE Condition: Stable Departure-Patient Inst. Decision time for Depature: 07:43 Referrals: JUVENTINO HENRY MD (PCP) Primary Care Physician Patient Instructions: Suicide Prevention Add. Discharge Instructions: Expect a phone call later this morning or you can call [facility] at [place] at [phone]. If you have an after-hours emergency you may call [phone]. Go home get some rest. If you feel more anxiety with heart palpitations, chest pressure or tingling fingers or other worrisome symptoms then you can use the Vistaril 1 tablet every 6 hours. If this is helping your continued to try something different your primary care doctor can help you. I suggest you get an appointment with them in the next week. All discharge instructions reviewed with patient and/or family. Voiced understanding. Scripts Hydroxyzine Pamoate (Vistaril) 25 Mg Capsule 25 MG PO Q6H for 7 Days, #10 CAP 0 Refills Prov: JOAQUINA GONGORA 12/13/17 JOAQUINA GONGORA Dec 13, 2017 06:25
[2017-12-13] MEDS ORDERED: hydrOXYzine (VISTARIL) 25 MG CAP PO ONE (06:30)
[2017-12-13] MEDS ORDERED: HYDR25CA PO (07:45)
[2017-12-13 08:00] VITALS: BP 143/85
== END 2017-12-13 08:01 | disposition home or self-care (01) ==
LOC: EDUNIT# 05:50 → ER 05:50
DX: R45.851 Suicidal ideations (principal); F41.0 Panic disorder [episodic paroxysmal anxiety]; F32.9 Major depressive disorder, single episode, unspecified; Z97.5 Presence of (intrauterine) contraceptive device
CPT/HCPCS: 99283

== ENCOUNTER → 2019-03-08 | Outpatient (CLI) | payer MEDICAID ==
[~2019-03-08] MED LIST changes: +HYDR25CA PO; +LEVO500T2 PO; +ONDA4TAB11 PO
--- NOTE | 2019-03-08 17:07 | Diagnostic Imaging Report ---
INDICATION: Right flank pain and hematuria. Time of exam 2:46 PM No prior studies are available for comparison. The bowel gas pattern is unremarkable. No definite radiopaque urinary tract calculi are detected. IMPRESSION: No acute abnormality is detected. Dictated by: Dictated on workstation # [id number]
== END ==
LOC: RAD FS 14:38
PROVIDERS: ATTEND Nurse Practitioner Family
DX: R10.9 Unspecified abdominal pain (principal); R31.9 Hematuria, unspecified; Z87.442 Personal history of urinary calculi
CPT/HCPCS: 74018

== ENCOUNTER → 2019-03-22 | Outpatient (CLI) | payer MEDICAID ==
[~2019-03-22] MED LIST changes: -LEVO500T2 PO; -ONDA4TAB11 PO
--- NOTE | 2019-03-22 10:36 | Diagnostic Imaging Report ---
PROCEDURE: CT abdomen and pelvis without contrast. TECHNIQUE: Multiple contiguous axial images were obtained through the abdomen and pelvis without the use of intravenous contrast. Auto Exposure Controls were utilized during the CT exam to meet ALARA standards for radiation dose reduction. INDICATION: Right flank pain, history of nephrolithiasis. COMPARISON: No previous for comparison. FINDINGS: The unobstructed right kidney appeared negative and nonfocal. There are punctate 1 to 2 mm nonobstructing stones within left lower pole renal calyces. No perinephric or periureteric edema. The unopacified urinary bladder appeared normal. No radiodense ureteral stone. The appendix is visualized and is normal. There is no bowel obstruction. The uterus and adnexa appeared unremarkable. No ascites, abscess, hematoma or other fluid collection. There is a tiny stone within the gallbladder lumen. No biliary dilatation. Liver, spleen, adrenals and pancreas negative. The aorta nonaneurysmal. IMPRESSION: 1. Tiny punctate nonobstructing left renal stones and a small gallstone present. 2. However, no obstructive phenomena, inflammatory process or acute appearing abnormalities identified. 3. We note normal appendix and unremarkable appearance of the adnexa. Dictated by: Dictated on workstation # [id number]
== END ==
LOC: RAD FS 08:58
PROVIDERS: ATTEND Nurse Practitioner Family
DX: N20.0 Calculus of kidney (principal); K80.20 Calculus of gallbladder without cholecystitis without obstruction; N12 Tubulo-interstitial nephritis, not specified as acute or chronic
CPT/HCPCS: 74176

== ENCOUNTER 2019-04-07 16:17 | Emergency (ER) | payer MEDICAID ==
[~2019-04-07] VITALS: Ht 167.3 cm; Wt 82.5 kg
[2019-04-07 17:22] LABS: BILIRUBIN,URINE NEGATIVE (NEGATIVE); CLARITY,URINE CLEAR; COLOR,URINE YELLOW; GLUCOSE, URINE (UA) NEGATIVE (NEGATIVE); KETONES,URINE NEGATIVE (NEGATIVE); LEUKOCYTE ESTERASE ,URINE TRACE (NEGATIVE); NITRITE,URINE NEGATIVE (NEGATIVE); PH,URINE 6.5 (5-9); PROTEIN,URINE NEGATIVE (NEGATIVE)
[2019-04-07] MEDS ORDERED: NS IV 1000 ML 1,000 ML IV SCH (17:26)
[2019-04-07] MEDS ORDERED: ONDANSETRON 4 MG/2 ML (SDV) Z0FRAN IVP ONE (17:30)
[2019-04-07 17:33] LABS: BASOPHILS % (AUTO) 0 % (0-10); EOSINOPHILS # (AUTO) 0.1 10^3/uL (0.0-0.3); EOSINOPHILS % (AUTO) 1 % (0-10); HEMATOCRIT 44 % (35-52); HEMOGLOBIN 15.2 G/DL (11.5-16.0); LYMPHOCYTES # (AUTO) 0.6 X 10^3 (1.0-4.0); LYMPHOCYTES % (AUTO) 5 % (12-44); MEAN CORPUSCULAR HEMOGLOBIN 29 PG (25-34); MEAN CORPUSCULAR HGB CONC 34 G/DL (32-36); MEAN CORPUSCULAR VOLUME 85 FL (80-99); MONOCYTES # (AUTO) 0.7 X 10^3 (0.0-1.0); MONOCYTES % (AUTO) 5 % (0-12); NEUTROPHILS # (AUTO) 11.5 X 10^3 (1.8-7.8); NEUTROPHILS % (AUTO) 89 % (42-75); PLATELET COUNT 297 10^3/uL (130-400); RED CELL DISTRIBUTION WIDTH 12.8 % (10.0-14.5); WHITE BLOOD COUNT 12.9 10^3/uL (4.3-11.0)
[2019-04-07 17:39] LABS: AMORPHOUS SEDIMENT,UR MOD AMOR URATES /LPF; BACTERIA,URINE TRACE /HPF
--- NOTE | 2019-04-07 17:46 | ED GI ---
General Chief Complaint: Abdominal/GI Problems Stated Complaint: ABD PAIN RT Nursing Triage Note: C/O NAUSEA WITH R UPPER QUAD PAIN HX OF GALLBLADDER ISSUES. TO SEE DR SUE NEXT THRUSDAY Sepsis Screen: No Definite Risk History of Present Illness Date Seen by Provider: Apr 07, 2019 Time Seen by Provider: 16:50 Initial Comments 28-year-old female presents for right upper quadrant abdominal pain. She states she was seen by [facility] in [place], CT was done of her abdomen which showed cholecystitis. She has an appointment scheduled next week with a general surgeon for evaluation. She is continuing to have abdominal pain and nausea. She did eat ramen noodles earlier today, she reports having a normal bowel movement earlier today. She is not taking any medication for pain. Timing/Duration: 12 Hours Severity/Quality: Moderate Radiation: RUQ Associated Symptoms: No Denies Symptoms, No Back Pain, No Chest Pain, No Diaphoresis, No Fever/Chills, No Fatigue, No Headache, No Heartburn; Nausea/Vomiting; No Rash, No Shortness of Air, No Swelling/Mass in Abdomen, No Syncope, No Weakness, No Other Allergies and Home Medications Allergies Coded Allergies: No Known Drug Allergies (Unverified , 12/12/17) Home Medications Hydroxyzine Pamoate 25 Mg Capsule, 25 MG PO Q6H Prescribed by: JOAQUINA GONGORA on 12/13/17 0745 Levofloxacin 500 Mg Tablet, 500 MG PO DAILY Prescribed by: JOON HAMPTON on 04/07/19 1853 Ondansetron 4 Mg Tab.rapdis, 4 MG SL Q4H PRN for NAUSEA/VOMITING-1ST LINE Prescribed by: GERARDO LEE on 12/12/17 1542 Ondansetron 4 Mg Tab.rapdis, 4 MG PO Q6H PRN for NAUSEA/VOMITING Prescribed by: JOON HAMPTON on 04/07/19 1747 Patient Home Medication List Home Medication List Reviewed: Yes Review of Systems Review of Systems Constitutional: no symptoms reported, see HPI Gastrointestinal: See HPI, Abdominal Pain; Denies Constipated, Denies Diarrhea; Nausea, Poor Appetite; Denies Vomiting All Other Systems Reviewed Negative Unless Noted: Yes Past Mwegiuj-Nnhclk-Sicign Hx Past Med/Social Hx: Reviewed Nursing Past Med/Soc Hx Patient Social History Alcohol Use: Occasionally Uses Recreational Drug Use: No Smoking Status: Never a Smoker 2nd Hand Smoke Exposure: No Recent Foreign Travel: No Contact w/Someone Who Travel: No Recent Infectious Disease Expo: No Recent Hopitalizations: No Immunizations Up To Date Tetanus Booster (TDap): Unknown Seasonal Allergies Seasonal Allergies: No Past Medical History Surgeries: No Respiratory: No Cardiac: No Neurological: No 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 oz. 83.407705rd; 29.00 BMI Method:Stated General Appearance: WD/WN, no apparent distress HEENT: PERRL/EOMI, normal ENT inspection, TMs normal, pharynx normal, other (oral mucosa pink and moist.) Neck: non-tender, full range of motion, supple, normal inspection Respiratory: chest non-tender, lungs clear, normal breath sounds Cardiovascular: normal peripheral pulses, regular rate, rhythm, no murmur Gastrointestinal: normal bowel sounds, soft, no organomegaly; No distended, No guarding, No rebound; tenderness (right upper quadrant, increased pain with Yusuf's sign); No hernia, No mass Neurologic/Psychiatric: no motor/sensory deficits, alert, normal mood/affect, oriented x 3 Skin: normal color, warm/dry; No jaundice, No rash Progress/Results/Core Measures Results/Orders Lab Results Laboratory Tests Test 04/07/19 17:14 04/07/19 17:25 Range/Units Urine Color YELLOW Urine Clarity CLEAR Urine pH 6.5 5-9 Urine Specific [place] 1.025 H 1.016-1.022 Urine Protein NEGATIVE NEGATIVE Urine Glucose (UA) NEGATIVE NEGATIVE Urine Ketones NEGATIVE NEGATIVE Urine Nitrite NEGATIVE NEGATIVE Urine Bilirubin NEGATIVE NEGATIVE Urine Urobilinogen 0.2 < = 1.0 MG/DL Urine Leukocyte Esterase TRACE NEGATIVE Urine RBC (Auto) NEGATIVE NEGATIVE Urine RBC NONE /HPF Urine WBC 2-5 /HPF Urine Crystals PRESENT H /LPF Urine Amorphous Sediment MOD ANEL URATES H /LPF Urine Bacteria TRACE /HPF Urine Casts NONE /LPF Urine Mucus MODERATE H /LPF Urine Culture Indicated NO White Blood Count 12.9 H 4.3-11.0 10^3/uL Red Blood Count 5.21 4.35-5.85 10^6/uL Hemoglobin 15.2 11.5-16.0 G/DL Hematocrit 44 35-52 % Mean Corpuscular Volume 85 80-99 FL Mean Corpuscular Hemoglobin 29 25-34 PG Mean Corpuscular Hemoglobin Concent 34 32-36 G/DL Red Cell Distribution Width 12.8 10.0-14.5 % Platelet Count 297 130-400 10^3/uL Mean Platelet Volume 9.0 7.4-10.4 FL Neutrophils (%) (Auto) 89 H 42-75 % Lymphocytes (%) (Auto) 5 L 12-44 % Monocytes (%) (Auto) 5 0-12 % Eosinophils (%) (Auto) 1 0-10 % Basophils (%) (Auto) 0 0-10 % Neutrophils # (Auto) 11.5 H 1.8-7.8 X 10^3 Lymphocytes # (Auto) 0.6 L 1.0-4.0 X 10^3 Monocytes # (Auto) 0.7 0.0-1.0 X 10^3 Eosinophils # (Auto) 0.1 0.0-0.3 10^3/uL Basophils # (Auto) 0.0 0.0-0.1 10^3/uL Neutrophils % (Manual) 80 % Lymphocytes % (Manual) 11 % Monocytes % (Manual) 4 % Eosinophils % (Manual) 2 % Band Neutrophils 3 % Blood Morphology Comment NORMAL Sodium Level 140 135-145 MMOL/L Potassium Level 4.0 3.6-5.0 MMOL/L Chloride Level 108 H 98-107 MMOL/L Carbon Dioxide Level 20 L 21-32 MMOL/L Anion Gap 12 5-14 MMOL/L Blood Urea Nitrogen 14 7-18 MG/DL Creatinine 0.77 0.60-1.30 MG/DL Estimat Glomerular Filtration Rate > 60 BUN/Creatinine Ratio 18 Glucose Level 108 H 70-105 MG/DL Calcium Level 8.7 8.5-10.1 MG/DL Corrected Calcium 8.4 L 8.5-10.1 MG/DL Total Bilirubin 0.6 0.1-1.0 MG/DL Aspartate Amino Transf (AST/SGOT) 14 5-34 U/L Alanine Aminotransferase (ALT/SGPT) 17 0-55 U/L Alkaline Phosphatase 100 40-136 U/L Total Protein 7.0 6.4-8.2 GM/DL Albumin 4.4 3.2-4.5 GM/DL My Orders Orders - [place] Ua Culture If Indicated (04/07/19 16:22) Urine Bedside (04/07/19 16:22) Cbc With Automated Diff (04/07/19 16:54) Comprehensive Metabolic Panel (04/07/19 16:54) Ondansetron Injection (Zofran Injectio (04/07/19 17:30) Ed Iv/Invasive Line Start (04/07/19 17:26) Ns Iv 1000 Ml (Sodium Chloride 0.9%) (04/07/19 17:26) Manual Differential (04/07/19 17:25) Medications Given in ED Current Medications Medications Dose Ordered Sig/Sammy Route Start Time Stop Time Status Last Admin Dose Admin Ondansetron HCl 4 mg ONCE ONCE IVP 04/07/19 17:30 04/07/19 17:31 DC 04/07/19 18:19 4 MG Vital Signs/I&O 04/07/19 04/07/19 16:34 19:20 Temp 36.8 36.8 Pulse 98 98 Resp 18 18 B/P (MAP) 100/62 (75) 100/62 (75) Pulse Ox 98 98 O2 Delivery Room Air Room Air Blood Pressure Mean: 75 Progress Progress Note : Time: 16:50 Progress Note Patient seen and evaluated, will obtain labs and reevaluate, normal saline 1 L per IV and Zofran 4 mg IV. Discussed with patient that ultrasound is not available at this facility at this time. 1730 patient reports improvement in her nausea, IV infusing, waiting lab results. 1745 labs reviewed with patient, no acute findings to indicate additional studies at this time. [address] Ingram, recommended continuing current plan of care and adding Levaquin 500 mg 1 daily. 1850 discharge instructions and return precautions reviewed with the patient, no further nausea and pain better controlled. Departure Impression Primary Impression: Cholecystitis Additional Impressions: Pain, abdominal, RUQ Nausea Disposition: HOME, SELF-CARE Condition: Stable Departure-Patient Inst. Decision time for Depature: 18:50 Referrals: JUVENTINO HENRY MD (PCP/Family) Primary Care Physician MARIELLE SUE DO Patient Instructions: Gallstones (DC), Nausea and Vomiting, Adult (DC) Add. Discharge Instructions: You may take Tylenol 650 mg every 6-8 hours as needed for pain. Take Levaquin 1 tablet daily as directed. Use the Zofran every 6-8 hours as needed for nausea or vomiting. Keep your scheduled appointment with Dr. Sue for next week, call his office if symptoms are worsening. Strict clear liquid diet for the next 8-12 hours then bland diet as tolerated. If symptoms worsen adhered to a clear liquid diet. Avoid any fried foods, greasy foods, high fat foods, or dairy products. Return to the emergency department for new, urgent health care needs All discharge instructions reviewed with patient and/or family. Voiced understanding. Scripts Levofloxacin (Levaquin) 500 Mg Tablet 500 MG PO DAILY, #5 TAB 0 Refills Prov: JOON HAMPTON 04/07/19 Ondansetron (Ondansetron Odt) 4 Mg Tab.rapdis 4 MG PO Q6H PRN for NAUSEA/VOMITING, #15 TAB 0 Refills Prov: JOON HAMPTON 04/07/19 Copy Copies To 1: MARIELLE SUE AMY ARNP Apr 07, 2019 17:46
[2019-04-07] MEDS ORDERED: ONDA4TAB11 PO (17:47)
[2019-04-07 18:05] LABS: ALANINE AMINOTRANSFERASE 17 U/L (0-55); ALBUMIN 4.4 GM/DL (3.2-4.5); ALKALINE PHOSPHATASE 100 U/L (40-136); BILIRUBIN,TOTAL 0.6 MG/DL (0.1-1.0); BUN/CREATININE RATIO 18; CALCIUM 8.7 MG/DL (8.5-10.1); CARBON DIOXIDE 20 MMOL/L (21-32); CHLORIDE 108 MMOL/L (98-107); CREATININE SERUM 0.77 MG/DL (0.60-1.30); GFR ESTIMATED > 60; GLUCOSE 108 MG/DL (70-105); SODIUM 140 MMOL/L (135-145)
[2019-04-07 18:13] LABS: BAND NEUTROPHILS 3 %; EOSINOPHILS % (MANUAL) 2 %; LYMPHOCYTES % (MANUAL) 11 %; MONOCYTES % (MANUAL) 4 %; NEUTROPHILS % (MANUAL) 80 %; RBC MORPH NORMAL
[2019-04-07] MEDS ORDERED: LEVO500T2 PO (18:53)
[2019-04-07 19:20] VITALS: BP 100/62
== END 2019-04-07 19:21 | disposition home or self-care (01) ==
LOC: EDUNIT# 16:17 → ER 16:19
DX: K81.9 Cholecystitis, unspecified (principal); F41.9 Anxiety disorder, unspecified; F32.9 Major depressive disorder, single episode, unspecified
CPT/HCPCS: 36415; 80053; 81000; 84703; 85007; 85027; 96374

== ENCOUNTER 2019-04-20 05:30 | Outpatient (CLI) | payer MEDICAID ==
[~2019-04-20] VITALS: Ht 165.1 cm; Wt 81.4 kg
[~2019-04-20 05:30] MED LIST changes: +LEVO500T2 PO; +ONDA4TAB11 PO
[2019-04-22] MEDS ORDERED: PRD10T (08:19)
[2019-04-22] MEDS ORDERED: ACHD5005 PO (10:15)
== END 2019-04-20 10:50 | disposition home or self-care (01) ==
LOC: PREOP 05:30
PROVIDERS: ATTEND Surgery
DX: Z01.818 Encounter for other preprocedural examination (principal)

== ENCOUNTER 2019-07-20 15:48 | Emergency (ER) | payer MEDICAID ==
[~2019-07-20] VITALS: Ht 160 cm; Wt 77.0 kg
[~2019-07-20 15:48] MED LIST changes: +ACHD5005 PO; +PRD10T
--- OUTSIDE RECORDS SUMMARY | 2019-07-20 15:53 | XMS REPORT ---
Author Author Laura SMALL Organization [facility] RE Address [address] [place] [address] Care Team Providers Care Registered Nurse Nursery Name Role Phone JEREMY SMALL Unavailable PROBLEMS Type Condition ICD9-CM Code [id number] Code Onset Dates Condition S tatus SNOMED Code Problem Gastroesophagitis K29.70 Dec, Active 86359255 Problem Kidney stone N20.0 Active 5785479 7 Problem Seasonal allergic reaction J30.2 Act sabra 961349474 Problem Moderate episode of recurrent major depressive disorde r F33.1 Dec, Active 78182825 Problem Gastroesophageal reflux disease with esophagitis K21.0 Dec, Active 585820568 Problem ROBYN (generalized anxiety disorder) F41.1 2017 Active 34513840 Problem Cervical high risk human papillomavirus (HPV) DN A test positive R87.810 Active 493278613 ALLERGIES No Known Allergies ENCOUNTERS Encounter Location Date Diagnosis [facility] [address] [facility] 340 [id number], [place] [address] 28 May, 2019 Influenza B J10.1 and Flu-li ke symptoms R68.89 [facility] [id number] [place] [address] May, Acute non-recurrent maxillar y sinusitis J01.00 ; Sore throat J02.9 and Exposure to influenza Z20.[address] [id number], [place] [address] Apr, [address] [id number], [place] [address] Mar, Family planning Z30.09 and G AD (generalized anxiety disorder) F41.[address] [id number] [place] [address] Mar, [facility] [address] [id number] [place] [address] Mar, Pyelonephritis N12 [facility] [address] [id number] [place] [address] Mar, [facility] [address] [id number], [place] [address] Mar, Acute right flank pain R10.9 ; History of kidney stones Z87.442 and Acute pansinusitis, recurrence not specified J01.40 [facility] [address] [id number] [place] [address] 27 Feb, 2019 Viral URI J06.9 [facility] [address] [id number] [place] [address] 18 Feb, 2019 Pyelonephritis N12 and UTI s ymptoms R39.9 [facility] [address] [id number], [place] [address] 15 Feb, 2019 [facility] [address] [id number], [place] [address] Feb, [facility] [address] [id number], [place] [address] Jan, [facility] [address] [id number], [place] [address] Jan, Weight gain R63.5 [facility] [address] [id number], [place] [address] 04 Jan, 2019 ROBYN (generalized anxiety dis order) F41.1 ; Weight gain R63.5 ; Family history of diabetes mellitus (DM) Z83.3 ; Family planning Z30.09 and Encounter for Depo-Provera contraception Z30.42 [facility] [address] [id number], [place] [address] Dec, [facility] [address] [id number] [place] [address] Nov, Acute nasopharyngitis J00 [facility] [place] [id number] [id number] [place] [address] Nov, [facility] [address] 340 [id number], [place] [address] Nov, Sore throat J02.9 and Oral l esion K13.[address] [id number], [place] [address] Oct, Pelvic pain R10.2 and Dark u rine R82.[address] [id number], [place] [address] Oct, Dark urine R82.998 and Pelvi c pain R10.[id number] [place] [address] Oct, Encounter for Depo-Provera c ontraception Z30.[address] [id number], [place] [address] Jul, Drug screening, pre-employme nt Z02.[address] [id number], [place] [address] Jul, Pap test, as part of routine gynecological examination Z01.419 and Encounter for Depo-Provera contraception Z30.42 [facility] [address] 340 [id number], [place] [address] Jun, Seasonal allergic reaction J 30.2 and Sore throat J02.9 [facility] [address] [facility]NOTE 3] [id number] [address] [place] [address] Mar, [facility] [address] [facility]NOTE 3] [id number] [address] [place] [address] Feb, UTI symptoms R39.9 ; Urinary urgency R39.15 ; Kidney stone N20.0 and Ureteral calculi N20.1 [facility] [address] [place] [id number] [place] [address] Feb, [facility] [address] [place] [id number] [place] [address] 09 Feb, 2018 Encounter for Depo-Provera c ontraception Z30.42 [place] [address] [place] [id number] [place] [address] Feb, [facility] [address] [place] [id number] [place] [address] Jan, Acute pharyngitis, unspecifi ed etiology J02.9 [place] [address] [place] [id number] [place] [address] Dec, [place] [address] [place] [id number] [place] [address] Nov, Encounter for Depo-Provera c ontraception Z30.42 [facility] [address] [place] [id number] [place] [address] August, Encounter for Depo-Provera c ontraception Z30.42 [place] [address] [place] [id number] [place] [address] Jun, Cervical high risk human pap illomavirus (HPV) DNA test positive R87.810 [place] [address] [place] [id number] [place] [address] Jun, [facility] [address] [place] [id number] [place] [address] May, Well woman exam Z01.419 ; En counter for Depo-Provera contraception Z30.42 and Encounter for surveillance of injectable contraceptive Z30.42 [facility] [address] [facility]] [id number] [address] [place] [address] 12 May, 2017 [facility] [address] [place] [id number] [place] [address] Feb, Encounter for Depo-Provera c ontraception Z30.42 [facility] [address] [facility]NOTE 3] [id number] [address] [place] [address] Nov, Encounter for Depo-Provera c ontraception Z30.42 [facility] [address] [facility] 3] [id number] [address] [place] [address] August, Abnormal thyroid function te st R94.6 [facility] [address] [facility]NOTE 3] [id number] [address] [place] [address] August, Abnormal thyroid function te st R94.6 ; Anterior chest wall pain R07.89 and General medical exam Z00.00 [place] [address] [facility]NOTE 3] [id number] [address] [place] [address] August, Encounter for Depo-Provera c ontraception Z30.42 [facility] [address] [place] [id number] [place] [address] Jun, [facility] [address] [facility]] [id number] [address] [place] [address] Jun, Cervical high risk human pap illomavirus (HPV) DNA test positive R87.810 and Atypical squamous cells of undetermined significance on cytologic smear of cervix (ASC-US) R87.610 [facility] [address] [facility]NOTE 3] [id number] [address] [place] [address] 07 May, 2016 Routine gynecological examin ation Z01.419 and Encounter for Depo- Provera contraception Z30.42 [facility] [address] [facility] 3] [id number] [address] [place] [address] Jul, [place] [address] [facility]NOTE 3] [id number] [address] [place] [address] Jul, [facility] [address] [facility] 3] [id number] [address] [place] [address] Oct, [facility] [address] [facility] 3] [id number] [address] [place] [phone] Jun, [facility] [address] [facility] 3] [id number] [address] [place] [phone] Jun, [facility] [address] [facility] 3] [id number] [address] [place] [phone] Jun, [facility] [address] [facility] 3] [id number] [address] [place] [id number] Jan, [facility] [address] [facility] 3] [id number] [address] [place] [phone] Jan, IMMUNIZATIONS No Known Immunizations SOCIAL HISTORY Never Assessed REASON FOR VISIT Sore throat, ear pressure, congestion, cough, patient reported symptoms started three weeks ago, and patient though symptoms were improving, but symptoms have g dominic worse. Patient has taken Tylenol, Ibuprofen, and Nyquil. Mala Kong MA PLAN OF CARE Activity Details Follow Up if not improving with PCP or reg follow up Reason: VITAL SIGNS Height 64.5 in 2018-06-30 Weight 163 lbs 2018-06-30 Temperature 98.8 degrees Fahrenheit 2018-06-30 Heart Rate 82 bpm 2018-06-30 Respiratory Rate 18 2018-06-30 Oximetry 99 % 2018-06-30 BMI 27.54 kg/m2 2018-06-30 Blood pressure systolic 121 mmHg 2018-06-30 Blood pressure diastolic 70 mmHg 2018-06-30 MEDICATIONS Medication Instructions Dosage Frequency Start Date End Date Duration S tatus PredniSONE 20 MG Orally Once a day 3 tablets 24h Jun, 3 days Active Depo-Provera 150 MG/ML as directed May, Active RESULTS Name Result Date Reference Range STREP A (IN HOUSE) STREP A negative Control + Lot # [id number] Exp date 2021-02-19 PROCEDURES Procedure Date Ordered Result Body Site STREP A ASSAY W/OPTIC June 30, 2018 INSTRUCTIONS MEDICATIONS ADMINISTERED No Known Medications MEDICAL (GENERAL) HISTORY Type Description Date Medical History gestational diabetes Medical History depression Medical History anxeity Surgical History EGD Hospitalization History childbirth only
--- OUTSIDE RECORDS SUMMARY | 2019-07-20 15:55 | XMS REPORT | Continuity of Care Document ---
Author Organization Unknown Address Unknown Phone Unavailable Allergies Active Description Code Type Severity Reaction Onset Reported/Identified Relationship to Patient Clinical Status Yes No Known Drug Allergies [id number] Drug Allergy Unknown N/A 12/12/2017 Medications There is no data. Problems Date Dx Coded Attending Type Code Diagnosis Diagnosed By 01/07/2012 BERNIE KAHN APRN 465.9 UPPER RESPIRATORY INFECTION 01/07/2012 BERNIE KAHN APRN V25.02 CONTRACEPTION - ANY METHOD 01/07/2012 BERNIE KAHN APRN V72.31 REED DIPPER EXAM, ROUTINE 01/07/2012 BERNIE KAHN APRN V74.5 STD SCREEN 07/01/2012 BERNIE KAHN APRN 535.50 GASTRITIS UNSPEC 12/12/2017 BERNOT, GERARDO Ot R10.10 UPPER ABDOMINAL PAIN, UNSPECIFIED 12/12/2017 BERNOT, GERARDO Ot R11.0 NAUSEA 12/12/2017 BERNOT, GERARDO Ot Z97.5 PRESENCE OF (INTRAUTERINE) CONTRACEPTIVE 12/13/2017 JOAQUINA GONGORA MD Ot F32. 9 MAJOR DEPRESSIVE DISORDER, SINGLE EPISOD 12/13/2017 JOAQUINA GONGORA MD Ot F41. 0 PANIC DISORDER [EPISODIC PAROXYSMAL ANXI 12/13/2017 JOAQUINA GONGORA MD Ot R45.851 SUICIDAL IDEATIONS 12/13/2017 JOAQUINA GONGORA MD J Ot Z97. 5 PRESENCE OF (INTRAUTERINE) CONTRACEPTIVE 12/14/2017 BERNOT, GERARDO Ot R10.10 UPPER ABDOMINAL PAIN, UNSPECIFIED 12/14/2017 BERNOT, GERARDO Ot R11.0 NAUSEA 12/14/2017 BERNOT, GERARDO Ot Z97.5 PRESENCE OF (INTRAUTERINE) CONTRACEPTIVE 12/15/2017 JOAQUINA GONGORA MD J Ot F32. 9 MAJOR DEPRESSIVE DISORDER, SINGLE EPISOD 12/15/2017 JOAQUINA GONGORA MD Ot F41. 0 PANIC DISORDER [EPISODIC PAROXYSMAL ANXI 12/15/2017 JOAQUINA GONGORA MD Ot R45.851 SUICIDAL IDEATIONS 12/15/2017 ROLAN BRODERICK, JOAQUINA Nielson Ot Z97. 5 PRESENCE OF (INTRAUTERINE) CONTRACEPTIVE 03/11/2019 Ot R10.9 UNSP ECIFIED ABDOMINAL PAIN 03/11/2019 Ot R31.9 KARON TURIA, UNSPECIFIED 03/11/2019 Ot Z87.442 PE RSONAL HISTORY OF URINARY CALCULI 03/23/2019 Ot R10.9 UNSP ECIFIED ABDOMINAL PAIN 03/23/2019 Ot R31.9 KARON TURIA, UNSPECIFIED 03/23/2019 Ot Z87.442 PE RSONAL HISTORY OF URINARY CALCULI 03/23/2019 RAYA, SANGEETHA S [employer] Ot K80.20 CALCULUS OF GALLBLADDER W/O CHOLECYSTITI 03/23/2019 RAYA, SANGEETHA S [employer] Ot N1 2 TUBULO-INTERSTITIAL NEPHRITIS, NOT SPCF 03/23/2019 RAYA, SANGEETHA S [employer] Ot N20.0 CALCULUS OF KIDNEY 04/07/2019 Ot R10.9 UNSP ECIFIED ABDOMINAL PAIN 04/07/2019 Ot R31.9 KARON TURIA, UNSPECIFIED 04/07/2019 Ot Z87.442 PE RSONAL HISTORY OF URINARY CALCULI 04/07/2019 RAYA, SANGEETHA S [employer] Ot K80.20 CALCULUS OF GALLBLADDER W/O CHOLECYSTITI 04/07/2019 RAYA, SANGEETHA S [employer] Ot N1 2 TUBULO-INTERSTITIAL NEPHRITIS, NOT SPCF 04/07/2019 RAYA, SANGEETHA S [employer] Ot N20.0 CALCULUS OF KIDNEY 04/07/2019 MEMO, JOON NURSING COORDINATOR Ot F32.9 MAJOR DEPRESSIVE DISORDER, SINGLE EPISOD 04/07/2019 MEMO, JOON NURSING COORDINATOR Ot F41.9 ANXIETY DISORDER, UNSPECIFIED 04/07/2019 MEMO, JOON NURSING COORDINATOR Ot K81.9 CHOLECYSTITIS, UNSPECIFIED 04/07/2019 MEMO, JOON NURSING COORDINATOR Ot R10.11 RIGHT UPPER QUADRANT PAIN 04/12/2019 MEMO, JOON NURSING COORDINATOR Ot F32.9 MAJOR DEPRESSIVE DISORDER, SINGLE EPISOD 04/12/2019 MEMO, JOON NURSING COORDINATOR Ot F41.9 ANXIETY DISORDER, UNSPECIFIED 04/12/2019 MEMO, JOON NURSING COORDINATOR Ot K81.9 CHOLECYSTITIS, UNSPECIFIED 04/12/2019 MEMO, JOON NURSING COORDINATOR Ot R10.11 RIGHT UPPER QUADRANT PAIN 04/21/2019 LINETTE PULIDO, MARIELLE B Ot Z01.8 18 ENCOUNTER FOR OTHER PREPROCEDURAL EXAMIN 04/27/2019 LINETTE PULIDO MARIELLE B Ot F41.9 ANXIETY DISORDER, UNSPECIFIED 04/27/2019 LINETTE PULIDO, MARIELLE B Ot K21.0 GASTRO-ESOPHAGEAL REFLUX DISEASE WITH ES 04/27/2019 LINETTE PULIDO MARIELLE B Ot K29.7 0 GASTRITIS, UNSPECIFIED, WITHOUT BLEEDING 04/27/2019 LINETTE PULIDO MARIELLE B Ot K31.7 POLYP OF STOMACH AND DUODENUM 04/27/2019 LINETTE PULIDO MARIELLE B Ot K80.1 0 CALCULUS OF GALLBLADDER W CHRONIC CHOLEC 04/27/2019 LINETTE PULIDO MARIELLE B Ot Z79.8 99 OTHER ALF (CURRENT) DRUG THERAPY 04/27/2019 LINETTE PULIDO MARIELLE B Ot Z82.4 9 FAMILY HX OF ISCHEM HEART DIS AND OTH DI Procedures Code [place] [address] URIN E TEST (IN- HOUSE) 07/01/2012 Results Test Result Range CULTURE, GENITAL - 05/22/17 14:31 CULTURE, GENITAL SEE NOTE NRG SUREPATH PAP AND HPV mRNA E6/E7 - 14:31 CLINICAL INFORMATION: NRG LMP: NRG PREV. PAP: 2017 NRG PREV. BX: COLP 2017 NR SOURCE: Cervix NR STATEMENT OF ADEQUACY: NR INTERPRETATION/RESULT: NRG WOOD FUEL PELLETIZER: LISETTE HPV mRNA E6/E7, SUREPATH VIAL Detected NOT DETECTED REVIEW WOOD FUEL PELLETIZER: LISETTE TISSUE, 2 SPECIMENS - 06/15/17 13:58 A SOURCE NRG A GROSS DESCRIPTION NRG A DIAGNOSIS NRG Complete blood count (CBC) with automate d white blood cell (WBC) differential - 12/12/17 13:34 Blood leukocytes automated count (number/volume) 11.1 10*3/uL 4.3-11.0 Blood erythrocytes automated count (number/volume) 4.96 10*6/uL 4.35-5.85 Venous blood hemoglobin measurement (mass/volume) 14.8 g/dL 11.5-16.0 Blood hematocrit (volume fraction) 42 % 35-52 Automated erythrocyte mean corpuscular volume 84 [ foz_us] 80-99 Automated erythrocyte mean corpuscular h emoglobin (mass per erythrocyte) 30 pg 25-34 Automated erythrocyte mean corpuscular h emoglobin concentration measurement (mass/volume) 36 g/dL 32-36 Automated erythrocyte distribution width ratio 12. 6 % 10.0- 14.5 Automated blood platelet count (count/volume) 334 10*3/uL 130-400 Automated blood platelet mean volume measurement 9.5 [foz_us] 7.4-10.4 Automated blood neutrophils/100 leukocytes 75 % 42-75 Automated blood lymphocytes/100 leukocytes 16 % 12-44 Blood monocytes/100 leukocytes 8 % 0-12 Automated blood eosinophils/100 leukocytes 1 % 0-10 Automated blood basophils/100 leukocytes 0 % 0-10 Blood neutrophils automated count (number/volume) 8.3 10*3 1.8-7.8 Blood lymphocytes automated count (number/volume) 1.8 10*3 1.0-4.0 Blood monocytes automated count (number/volume) 0. 8 10*3 0.0-1.0 Automated eosinophil count 0.2 10*3/uL 0 .0-0.3 Automated blood basophil count (count/volume) 0.0 10*3/uL 0.0-0.1 Serum or plasma choriogonadotropin (preg david test) detection - 12/12/17 13:34 Serum or plasma choriogonadotropin ( test) de tection NEGATIVE NEGATIVE Comprehensive metabolic panel - 12/12/17 13:34 Serum or plasma sodium measurement (moles/volume) 140 mmol/L 135-145 Serum or plasma potassium measurement (moles/volume) 3.6 mmol/L 3.6-5.0 Serum or plasma chloride measurement (moles/volume) 109 mmol/L 98-107 Carbon dioxide 20 mmol/L 21-32 Serum or plasma anion gap determination (moles/volume) 11 mmol/L 5-14 Serum or plasma urea nitrogen measurement (mass/volume ) 8 mg/dL 7-18 Serum or plasma creatinine measurement (mass/volume) 0.78 mg/dL 0.60-1.30 Serum or plasma urea nitrogen/creatinine mass ratio 10 NRG Serum or plasma creatinine measurement w ith calculation of estimated glomerular filtration rate > NRG Serum or plasma glucose measurement (mass/volume) 82 mg/dL 70-105 Serum or plasma calcium measurement (mass/volume) 9.6 mg/dL 8.5-10.1 Serum or plasma total bilirubin measurement (mass/volu me) 0.6 mg/dL 0.1-1.0 Serum or plasma alkaline phosphatase shelley surement (enzymatic activity/volume) 105 U/L 40-136 Serum or plasma aspartate aminotransfera se measurement (enzymatic activity/volume) 20 U/L 5-34 Serum or plasma alanine aminotransferase measurement (enzymatic activity/volume) 24 U/L 0-55 Serum or plasma protein measurement (mass/volume) 7.4 g/dL 6.4-8.2 Serum or plasma albumin measurement (mass/volume) 4.5 g/dL 3.2-4.5 CALCIUM CORRECTED 9.2 mg/dL 8.5-10.1 Serum or plasma amylase measurement (enz ymatic activity/volume) - 12/12/17 13:34 Serum or plasma amylase measurement (enzymatic activit y/volume) 43 U/L 25-125 Lipase - 12/12/17 13:34 Lipase 19 U/L 8-78 Complete urinalysis with reflex to cultu re - 12/12/17 15:00 Urine color determination YELLOW NRG Urine clarity determination CLEAR NR G Urine pH measurement by test strip 7 5-9 Specific gravity of urine by test strip 1.005 1.016-1.022 Urine protein assay by test strip, semi-quantitative NEGATIVE NEGATIVE Urine glucose detection by automated test strip NE GATIVE NEGATIVE Erythrocytes detection in urine sediment by light micr oscopy 3+ NEGATIVE Urine ketones detection by automated test strip 2+ NEGATIVE Urine nitrite detection by test strip NEGATIVE NEGATIVE Urine total bilirubin detection by test strip NEGA TIVE NEGATIVE Urine urobilinogen measurement by automated test strip (mass/volume) NORMAL NORMAL Urine leukocyte esterase detection by dipstick 2+ NEGATIVE Automated urine sediment erythrocyte cou nt by microscopy (number/high power field) [HPF] NRG Automated urine sediment leukocyte count by microscopy (number/high power field) [HPF] NRG Bacteria detection in urine sediment by light microsco py LARGE NRG Squamous epithelial cells detection in u rine sediment by light microscopy 5-10 NRG Crystals detection in urine sediment by light microsco py NONE NRG Casts detection in urine sediment by light microscopy NONE NRG Mucus detection in urine sediment by light microscopy NEGATIVE NRG Complete urinalysis with reflex to culture YES NRG Bacterial urine culture - 09/08/18 15:00 Bacterial urine culture SEE REPORT NRG COLONY COUNT . NRG CULTURE, URINE - 03/01/18 18:11 CULTURE, URINE, ROUTINE SEE NOTE NRG SUREPATH PAP RFX HPV mRNA E6/E7 - 14:25 CLINICAL INFORMATION: NRG LMP: NRG PREV. PAP: NRG PREV. BX: NRG SOURCE: Cervix NRG STATEMENT OF ADEQUACY: NRG INTERPRETATION/RESULT: NRG WOOD FUEL PELLETIZER: NRG PATHOLOGIST: NRG COMMENT NRG CULTURE, URINE - 11/01/18 17:29 CULTURE, URINE, ROUTINE SEE NOTE NRG CULTURE, THROAT - 11/08/18 18:10 CULTURE, THROAT SEE NOTE NRG TSH w/ FREE T4 - 01/07/19 09:30 TSH 0.29 mIU/L NRG T4, FREE 1.1 ng/dL 0.8-1.8 A1C - 01/07/19 09:30 HEMOGLOBIN A1c 4.6 % of total Hgb <5.7 CULTURE, URINE - 02/21/19 14:17 CULTURE, URINE, ROUTINE SEE NOTE NRG CULTURE, URINE - 03/08/19 14:34 CULTURE, URINE, ROUTINE SEE NOTE NRG Complete urinalysis with reflex to cultu re - 04/07/19 17:14 Urine color determination YELLOW NRG Urine clarity determination CLEAR NR G Urine pH measurement by test strip 6.5 5-9 Specific gravity of urine by test strip 1.025 1.016-1.022 Urine protein assay by test strip, semi-quantitative NEGATIVE NEGATIVE Urine glucose detection by automated test strip NE GATIVE NEGATIVE Erythrocytes detection in urine sediment by light micr oscopy NEGATIVE NEGATIVE Urine ketones detection by automated test strip NE GATIVE NEGATIVE Urine nitrite detection by test strip NEGATIVE NEGATIVE Urine total bilirubin detection by test strip NEGA TIVE NEGATIVE Urine urobilinogen measurement by automated test strip (mass/volume) 0.2 mg/dL < = 1.0 Urine leukocyte esterase detection by dipstick TRA CE NEGATIVE Automated urine sediment erythrocyte cou nt by microscopy (number/high power field) NONE NRG Automated urine sediment leukocyte count by microscopy (number/high power field) [HPF] NRG Bacteria detection in urine sediment by light microsco py TRACE NRG Crystals detection in urine sediment by light microsco py PRESENT NRG Casts detection in urine sediment by light microscopy NONE NRG Mucus detection in urine sediment by light microscopy MODERATE NRG Complete urinalysis with reflex to culture NO NRG Amorphous sediment detection in urine sediment by [facility] t microscopy MOD ANEL URATES NRG Complete blood count (CBC) with automate d white blood cell (WBC) differential - 04/07/19 17:25 Blood leukocytes automated count (number/volume) 12.9 10*3/uL 4.3-11.0 Blood erythrocytes automated count (number/volume) 5.21 10*6/uL 4.35-5.85 Venous blood hemoglobin measurement (mass/volume) 15.2 g/dL 11.5-16.0 Blood hematocrit (volume fraction) 44 % 35-52 Automated erythrocyte mean corpuscular volume 85 [ foz_us] 80-99 Automated erythrocyte mean corpuscular h emoglobin (mass per erythrocyte) 29 pg 25-34 Automated erythrocyte mean corpuscular h emoglobin concentration measurement (mass/volume) 34 g/dL 32-36 Automated erythrocyte distribution width ratio 12. 8 % 10.0- 14.5 Automated blood platelet count (count/volume) 297 10*3/uL 130-400 Automated blood platelet mean volume measurement 9.0 [foz_us] 7.4-10.4 Automated blood neutrophils/100 leukocytes 89 % 42-75 Automated blood lymphocytes/100 leukocytes 5 % 12-44 Blood monocytes/100 leukocytes 5 % 0-12 Automated blood eosinophils/100 leukocytes 1 % 0-10 Automated blood basophils/100 leukocytes 0 % 0-10 Blood neutrophils automated count (number/volume) 11.5 10*3 1.8-7.8 Blood lymphocytes automated count (number/volume) 0.6 10*3 1.0-4.0 Blood monocytes automated count (number/volume) 0. 7 10*3 0.0-1.0 Automated eosinophil count 0.1 10*3/uL 0 .0-0.3 Automated blood basophil count (count/volume) 0.0 10*3/uL 0.0-0.1 Comprehensive metabolic panel - 04/07/19 17:25 Serum or plasma sodium measurement (moles/volume) 140 mmol/L 135-145 Serum or plasma potassium measurement (moles/volume) 4.0 mmol/L 3.6-5.0 Serum or plasma chloride measurement (moles/volume) 108 mmol/L 98-107 Carbon dioxide 20 mmol/L 21-32 Serum or plasma anion gap determination (moles/volume) 12 mmol/L 5-14 Serum or plasma urea nitrogen measurement (mass/volume ) 14 mg/dL 7-18 Serum or plasma creatinine measurement (mass/volume) 0.77 mg/dL 0.60-1.30 Serum or plasma urea nitrogen/creatinine mass ratio 18 NRG Serum or plasma creatinine measurement w ith calculation of estimated glomerular filtration rate > NRG Serum or plasma glucose measurement (mass/volume) 108 mg/dL 70-105 Serum or plasma calcium measurement (mass/volume) 8.7 mg/dL 8.5-10.1 Serum or plasma total bilirubin measurement (mass/volu me) 0.6 mg/dL 0.1-1.0 Serum or plasma alkaline phosphatase shelley surement (enzymatic activity/volume) 100 U/L 40-136 Serum or plasma aspartate aminotransfera se measurement (enzymatic activity/volume) 14 U/L 5-34 Serum or plasma alanine aminotransferase measurement (enzymatic activity/volume) 17 U/L 0-55 Serum or plasma protein measurement (mass/volume) 7.0 g/dL 6.4-8.2 Serum or plasma albumin measurement (mass/volume) 4.4 g/dL 3.2-4.5 CALCIUM CORRECTED 8.4 mg/dL 8.5-10.1 Manual absolute plasma cell count - 05/26 17:25 Blood monocytes/100 leukocytes 4 % NRG Manual blood segmented neutrophils/100 leukocytes 80 % NRG Blood band neutrophils/100 leukocytes 3 % NRG Manual blood lymphocytes/100 leukocytes 11 % NRG Manual eosinophils/100 leukocytes in nose 2 % NRG Blood erythrocyte morphology finding identification NORMAL NRG Methicillin resistant Staphylococcus aur eus (MRSA) screening culture - 04/22/19 07:30 Methicillin resistant Staphylococcus aureus (MRSA) scr eening culture NEG NRG CULTURE, THROAT - 05/17/19 18:17 CULTURE, THROAT SEE NOTE NRG Encounters ACCT No. Visit Date/Time Discharge Status Pt. Type Provider Facility Loc./Unit Complaint [id number] 07/01/2012 12:56:00 07/01/2012 23:59: 59 CLS Outpatient BERNIE KAHN APRN [id number] 04/22/2019 07:08:00 020 12:55:00 [id number] 04/20/2019 05:30:00 020 10:50:00 DIS Outpatient CURTTOMAS MARIELLE PULIDO [facility] PREOP GALLSTONES [id number] 04/07/2019 16:19:00 020 19:21:00 DIS Emergency JOON HAMPTON NURSING COORDINATOR [facility] ER ABD PAIN RT [id number] 03/22/2019 08:58:00 019 23:59:59 CLS Outpatient SANGEETHA DOS SANTOS S [employer] [facility] RAD FS PYELONEPHRITIS [id number] 12/13/2017 05:50:00 018 08:01:00 DIS Emergency JOAQUINA GONGORA MD [facility] ER SUICIDAL THOUGHTS,ANXIE TY [id number] 12/12/2017 12:54:00 018 15:52:00 DIS Emergency GERARDO LEE [facility] ER CANT EAT,NAUSEA,HEART R ATE KEEPS GOING UP [id number] 03/08/2019 14:38:00 Document Registration [id number] 04/04/2019 11:20:00 04/04/2019 23:59:5 9 C[id number] 05/17/2019 17:00:00 Document Registration [id number] 03/08/2019 14:00:00 Document Registration [id number] 02/21/2019 13:40:00 Document Registration [id number] 01/07/2019 08:20:00 Document Registration [id number] 11/08/2018 17:30:00 Document Registration [id number] 11/01/2018 17:00:00 Document Registration [id number] 07/09/2018 14:00:00 Document Registration [id number] 03/01/2018 16:20:00 Document Registration [id number] 06/15/2017 13:00:00 Document Registration [id number] 05/22/2017 13:40:00 Document Registration
[2019-07-20] MEDS ORDERED: ALBU2.5V4 (16:13)
[2019-07-20] MEDS ORDERED: AMOX500C2 (16:13)
--- NOTE | 2019-07-20 16:15 | ED Respiratory ---
General Chief Complaint: Respiratory Problems Stated Complaint: SOB Nursing Triage Note: ARRIVED VIA POV TO THE [facility] ER. COMPLAINS OF INCREASED SOA SINCE MAY WHEN SHE HAD THE FLU. Source: patient Exam Limitations: no limitations History of Present Illness Date Seen by Provider: Jul 20, 2019 Time Seen by Provider: 15:48 Initial Comments Patient presents to ER by private conveyance from home with chief complaint of shortness of air since May when she was diagnosed with influenza B. She reports no fevers, cough, nausea, sweats. She is not having a sore throat. She has no significant medical history. No history of asthma. She has Nexplanon in her left arm. Because of her symptoms she called her primary care office and they sent her here. She follows with Dr. Diaz. She is currently still taking amoxicillin for dental infection. She takes Zyrtec for seasonal allergies. Allergies and Home Medications Allergies Coded Allergies: No Known Drug Allergies (Unverified , 12/12/17) Home Medications Albuterol Sulfate 1 Puff Puff, 2 PUFF IH Q4H PRN for DYSPNEA 1 PUFF = 90 MCG Prescribed by: JOAQUINA GONGORA on 07/20/19 9263 Patient Home Medication List Home Medication List Reviewed: Yes Review of Systems Review of Systems Constitutional: No chills, No fever, No malaise EENTM: No ear discharge, No ear pain Respiratory: No cough; short of breath; No wheezing Cardiovascular: No chest pain, No Hx of Intervention, No palpitations Gastrointestinal: No abdominal pain, No constipation, No nausea Genitourinary: No discharge, No dysuria Musculoskeletal: No back pain, No joint pain Skin: No pruritus, No rash All Other Systems Reviewed Negative Unless Noted: Yes Past Ljljlnf-Xvtfcu-Poicec Hx Patient Social History Alcohol Use: Occasionally Uses Recreational Drug Use: No Smoking Status: Former Smoker Type Used: Cigarettes Former Smoker, Quit: Jul 06, 2011 2nd Hand Smoke Exposure: No Recent Foreign Travel: No Contact w/Someone Who Travel: No Recent Infectious Disease Expo: No Recent Hopitalizations: No Immunizations Up To Date Tetanus Booster (TDap): Unknown Seasonal Allergies Seasonal Allergies: No Past Medical History Surgeries: Yes (wisdom teeth) Respiratory: No Cardiac: No Neurological: No 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 oz. 83.085496to; 30.00 BMI Method:Stated General Appearance: WD/WN, no apparent distress Eyes: Bilateral Eye Normal Inspection, Bilateral Eye PERRL, Bilateral Eye EOMI HEENT: PERRL/EOMI, normal ENT inspection, TMs normal, pharynx normal Neck: non-tender, full range of motion, supple, normal inspection Respiratory: chest non-tender, lungs clear, normal breath sounds, no respiratory distress, no accessory muscle use Cardiovascular: normal peripheral pulses, regular rate, rhythm Extremities: normal range of motion, non-tender, normal inspection, normal capillary refill Neurologic/Psychiatric: alert, normal mood/affect, oriented x 3 Skin: normal color, warm/dry Progress/Results/Core Measures Suspected Sepsis Recent Fever Within 48 Hours: No Infection Criteria Present: Suspected New Infection New/Unexplained Altered Menta: No Sepsis Screen: No Definite Risk SIRS Temperature: Pulse: 104 Respiratory Rate: 16 Laboratory Tests 07/20/19 15:55: White Blood Count 8.7 Blood Pressure 141 /84 Mean: 103 Laboratory Tests 07/20/19 15:55: Creatinine 0.83, Platelet Count 388, Total Bilirubin 0.3 Results/Orders Lab Results Laboratory Tests Test 07/20/19 15:55 Range/Units White Blood Count 8.7 4.3-11.0 10^3/uL Red Blood Count 5.28 4.35-5.85 10^6/uL Hemoglobin 15.6 11.5-16.0 G/DL Hematocrit 44 35-52 % Mean Corpuscular Volume 84 80-99 FL Mean Corpuscular Hemoglobin 30 25-34 PG Mean Corpuscular Hemoglobin Concent 35 32-36 G/DL Red Cell Distribution Width 12.4 10.0-14.5 % Platelet Count 388 130-400 10^3/uL Mean Platelet Volume 9.2 7.4-10.4 FL Neutrophils (%) (Auto) 65 42-75 % Lymphocytes (%) (Auto) 27 12-44 % Monocytes (%) (Auto) 7 0-12 % Eosinophils (%) (Auto) 1 0-10 % Basophils (%) (Auto) 0 0-10 % Neutrophils # (Auto) 5.7 1.8-7.8 X 10^3 Lymphocytes # (Auto) 2.3 1.0-4.0 X 10^3 Monocytes # (Auto) 0.6 0.0-1.0 X 10^3 Eosinophils # (Auto) 0.1 0.0-0.3 10^3/uL Basophils # (Auto) 0.0 0.0-0.1 10^3/uL Sodium Level 140 135-145 MMOL/L Potassium Level 3.9 3.6-5.0 MMOL/L Chloride Level 105 98-107 MMOL/L Carbon Dioxide Level 23 21-32 MMOL/L Anion Gap 12 5-14 MMOL/L Blood Urea Nitrogen 11 7-18 MG/DL Creatinine 0.83 0.60-1.30 MG/DL Estimat Glomerular Filtration Rate > 60 BUN/Creatinine Ratio 13 Glucose Level 85 70-105 MG/DL Calcium Level 9.5 8.5-10.1 MG/DL Corrected Calcium 9.1 8.5-10.1 MG/DL Total Bilirubin 0.3 0.1-1.0 MG/DL Aspartate Amino Transf (AST/SGOT) 29 5-34 U/L Alanine Aminotransferase (ALT/SGPT) 37 0-55 U/L Alkaline Phosphatase 99 40-136 U/L Lactate Dehydrogenase 230 H 125-220 U/L C-Reactive Protein High Sensitivity 0.29 0.00-0.50 MG/DL Total Protein 7.7 6.4-8.2 GM/DL Albumin 4.5 3.2-4.5 GM/DL Procalcitonin 0.03 <0.10 NG/ML My Orders Orders - ROLANJOAQUINA J Chest 1 View, Ap/Pa Only (07/20/19 16:03) Cbc With Automated Diff (07/20/19 16:08) Comprehensive Metabolic Panel (07/20/19 16:08) Hs C Reactive Protein (07/20/19 16:08) LDH (07/20/19 16:08) Ferritin (07/20/19 16:08) Procalcitonin (Pct) (07/20/19 16:08) Vital Signs/I&O 07/20/19 15:48 Temp 36.8 Pulse 104 Resp 16 B/P (MAP) 141/84 (103) O2 Delivery Room Air Capillary Refill : Less Than 3 Seconds Blood Pressure Mean: 103 Progress Note #1: Time: 16:14 Progress Note 99-100% on room air. Heart rate of 104. Otherwise aseptic vital signs. She is afebrile. Plan to Check some labs and a chest x-ray including LDH, calcitonin, CRP, CBC, CMP. Progress Note #2: Time: 16:51 Progress Note Patient presents with several months of not improving shortness of air. She did have an incident of influenza. She's not having a cough or fever. She's not having some vital signs. We will be more likely is if with her history of seasonal allergies she has some underlying reactive airway disease. Markers of inflammation, white count are not impressive. Perhaps outpatient pulmonary lab testing would be in order a few months after her infection has concluded. I would not consider this patient under investigation for COVID-19 at this time. Diagnostic Imaging Diagonstic Imaging: Xray Plain Films/CT/US/NM/MRI: chest (1v) Comments No acute cardiopulmonary process on one view chest x-ray. Minorly flattened diaphragms and slight hyperexpansion noted with 11 ribs visible above the diaphragmatic shadow. NAME: MIRA RIVERA MED REC#: [id number] PT STATUS: REG ER : 1990 PHYSICIAN: JOAQUINA GONGORA MD ADMIT DATE: 07/20/19/ER Draft Date of Exam:07/20/19 CHEST 1 VIEW, AP/PA ONLY EXAMINATION: Chest 1 view. HISTORY: Shortness of breath. COMPARISON: None available. FINDINGS: The lung volumes are normal. No focal consolidation is seen. No large pleural effusion or pneumothorax is seen. The cardiomediastinal silhouette is normal in size and contour. No acute osseous abnormality is seen. IMPRESSION: 1. No acute pleuroparenchymal process. Dictated on workstation # [id number] Dict: 07/20/19 1631 Trans: 07/20/19 1635 [id number] Interpreted by: MILVIA MCCALL DO Electronically signed by: Reviewed: Reviewed by Me Departure Impression Primary Impression: Dyspnea, unspecified Qualified Codes: R06.00 - Dyspnea, unspecified Disposition: 01 HOME, SELF-CARE Condition: Stable Departure-Patient Inst. Decision time for Depature: 17:11 Referrals: JUVENTINO HENRY MD (PCP/Family) Primary Care Physician Patient Instructions: Shortness of Breath (Dyspnea) (DC) Add. Discharge Instructions: I don't believe the source of your shortness of air is related to an infection at this time. If you start developing fever, productive cough or worsening symptoms and I would encourage you to follow up in the ER for further evaluation. I have sent a prescription for pro-air/albuterol to the pharmacy. Please use the spacer and 2 puffs of albuterol every 4 hours as needed for shortness of air. Call your primary care office and request follow-up appointment. Usually a few months after your infection it is reasonable to consider outpatient pulmonary function testing. They will typically have you stop using the albuterol for 2-4 weeks prior to your testing. Continue using your Zyrtec 10 mg daily. All discharge instructions reviewed with patient and/or family. Voiced understanding. Scripts Albuterol Sulfate (PROAIR HFA) 1 Puff Puff 2 PUFF IH Q4H PRN for DYSPNEA, #1 EA 0 Refills 1 PUFF = 90 MCG Prov: JOAQUINA GONGORA 07/20/19 Work/School Note: Work Release Form Date Seen in the Emergency Department: Jul 20, 2019 Return to Work: Jul 23, 2019 Restrictions: No Restrictions Copy Copies To 1: JUVENTINO HENRY MD, TITUS J Jul 20, 2019 16:15
[2019-07-20 16:20] LABS: BASOPHILS % (AUTO) 0 % (0-10); EOSINOPHILS # (AUTO) 0.1 10^3/uL (0.0-0.3); EOSINOPHILS % (AUTO) 1 % (0-10); HEMATOCRIT 44 % (35-52); HEMOGLOBIN 15.6 G/DL (11.5-16.0); LYMPHOCYTES # (AUTO) 2.3 X 10^3 (1.0-4.0); LYMPHOCYTES % (AUTO) 27 % (12-44); MEAN CORPUSCULAR HEMOGLOBIN 30 PG (25-34); MEAN CORPUSCULAR HGB CONC 35 G/DL (32-36); MEAN CORPUSCULAR VOLUME 84 FL (80-99); MEAN PLATELET VOLUME 9.2 FL (7.4-10.4); MONOCYTES # (AUTO) 0.6 X 10^3 (0.0-1.0); MONOCYTES % (AUTO) 7 % (0-12); NEUTROPHILS # (AUTO) 5.7 X 10^3 (1.8-7.8); NEUTROPHILS % (AUTO) 65 % (42-75); PLATELET COUNT 388 10^3/uL (130-400); RED CELL DISTRIBUTION WIDTH 12.4 % (10.0-14.5); WHITE BLOOD COUNT 8.7 10^3/uL (4.3-11.0)
--- NOTE | 2019-07-20 16:35 | Diagnostic Imaging Report ---
EXAMINATION: Chest 1 view. HISTORY: Shortness of breath. COMPARISON: None available. FINDINGS: The lung volumes are normal. No focal consolidation is seen. No large pleural effusion or pneumothorax is seen. The cardiomediastinal silhouette is normal in size and contour. No acute osseous abnormality is seen. IMPRESSION: 1. No acute pleuroparenchymal process. Dictated by: Dictated on workstation # [id number]
[2019-07-20 16:38] LABS: ALBUMIN 4.5 GM/DL (3.2-4.5); CHLORIDE 105 MMOL/L (98-107); POTASSIUM 3.9 MMOL/L (3.6-5.0); SODIUM 140 MMOL/L (135-145)
--- NOTE | 2019-07-20 16:38 | NUR ---
RESTING IN BED ET DENIES NEEDS AT THIS TIME.
[2019-07-20 16:39] LABS: CALCIUM 9.5 MG/DL (8.5-10.1)
[2019-07-20 16:40] LABS: GLUCOSE 85 MG/DL (70-105)
[2019-07-20 16:41] LABS: TOTAL PROTEIN 7.7 GM/DL (6.4-8.2)
[2019-07-20 16:42] LABS: BILIRUBIN,TOTAL 0.3 MG/DL (0.1-1.0); CARBON DIOXIDE 23 MMOL/L (21-32)
[2019-07-20 16:44] LABS: ALKALINE PHOSPHATASE 99 U/L (40-136); CREATININE SERUM 0.83 MG/DL (0.60-1.30); GFR ESTIMATED > 60
[2019-07-20 16:45] LABS: BUN/CREATININE RATIO 13
[2019-07-20 16:47] LABS: ALANINE AMINOTRANSFERASE 37 U/L (0-55)
[2019-07-20] MEDS ORDERED: RT-ALBUINH IH (16:58)
[2019-07-20 17:15] VITALS: BP 139/84
== END 2019-07-20 17:15 | disposition home or self-care (01) ==
LOC: EDUNIT# 15:48 → ER 15:49
DX: R06.00 Dyspnea, unspecified (principal); R21 Rash and other nonspecific skin eruption; F41.9 Anxiety disorder, unspecified; F32.9 Major depressive disorder, single episode, unspecified; Z87.891 Personal history of nicotine dependence
CPT/HCPCS: 36415; 71045; 80053; 82728; 83615; 84145; 85025; 86141

== ENCOUNTER → 2019-07-21 | Outpatient (CLI) | payer MEDICAID ==
[~2019-07-21] MED LIST changes: +ALBU2.5V4; +AMOX500C2; +RT-ALBUINH IH
[2019-07-22 16:07] LABS: FREE T4 (FREE THYROXINE) 0.85 NG/DL (0.70-1.48)
== END ==
LOC: LAB FS 15:27
PROVIDERS: ATTEND Family Medicine
DX: E03.9 Hypothyroidism, unspecified (principal)
CPT/HCPCS: 36415; 84439; 84443

== ENCOUNTER → 2019-11-01 | Outpatient (CLI) | payer MEDICAID ==
[~2019-11-01] MED LIST changes: +RT-ALBUTEROL SULF 2.5 MG/3 ML PRE-MIX VIAL INH ONE
== END ==
LOC: RT 15:04
PROVIDERS: ATTEND Family Medicine
DX: J45.909 Unspecified asthma, uncomplicated (principal)
CPT/HCPCS: 94060; 94729